=== PATIENT | female | born 1940 | race Caucasian/White ===

== ENCOUNTER → 2019-08-28 | Outpatient (CLI) | payer MEDICARE, OTHER ==
[2019-08-28 19:57] LABS: African American GFR (CKD) 100.5 (60.0-200.0); Albumin 4.4 g/dL (3.80-4.90); Albumin/Globulin Ratio 2.44 (1.60-3.17); Anion Gap 7.6 mmol/L (4.00-12.00); Calcium 9.3 mg/dL (8.7-10.3); Carbon Dioxide 26.4 mmol/L (21.6-31.8); Globulin 1.8 g/dL (1.6-3.3); Potassium 4.1 mmol/L (3.5-5.5); Total Bilirubin 0.3 mg/dL (0.3-1.2); Total Protein 6.2 g/dL (6.2-8.2)
== END | disposition home or self-care (01) ==
LOC: LABWHC1 12:41
PROVIDERS: ATTEND Internal Medicine Endocrinology, Diabetes & Metabolism
DX: M81.0 Age-related osteoporosis without current pathological fracture (principal)
CPT/HCPCS: 36415; 80053; 82306; 83970; 84443

== ENCOUNTER 2020-07-21 23:51 | Inpatient (IN) | payer MEDICARE, OTHER ==
[2020-07-22] MEDS: SODIUM CHLORIDE 0.9% 500 ML 500 ML IV SCH ×2 (00:50→01:21)
[2020-07-22 01:34] LABS: Basophils % (A) 0 %; Eosinophils % (A) 0 %; HCT 37.3 % (34.0-46.0); HGB 12.1 gm/dL (11.4-16.0); Lymphocytes # (A) 0.3 k/uL (1.0-4.8); Lymphocytes % (A) 3 %; MCH 30.4 pg (25.0-35.0); MCHC 32.5 g/dL (31.0-37.0); MCV 93.4 fL (80.0-100.0); Mean Platelet Volume 8.4; Monocytes # (A) 0.4 k/uL (0-1.0); Monocytes % (A) 4 %; Neutrophils # (A) 10.6 k/uL (1.3-7.7); Neutrophils % (A) 93 %; Platelet Count 188 k/uL (150-450); RDW 12.8 % (11.5-15.5); WBC 11.4 k/uL (3.8-10.6)
[2020-07-22 01:38] LABS: ALT 9 U/L (4-34); AST 35 U/L (14-36); African American GFR (CKD) >90 (>60 ml/min/1.73 sqM); Albumin 3.5 g/dL (3.5-5.0); Alkaline Phosphatase 137 U/L (38-126); Anion Gap 7 mmol/L; Blood Urea Nitrogen 30 mg/dL (7-17); Calcium 8.7 mg/dL (8.4-10.2); Carbon Dioxide 23 mmol/L (22-30); Chloride 106 mmol/L (98-107); Glucose 122 mg/dL (74-99); Magnesium 2.2 mg/dL (1.6-2.3); Non-African American GFR(CKD) 87 (>60 ml/min/1.73 sqM); Potassium 4.1 mmol/L (3.5-5.1); Sodium 136 mmol/L (137-145); Total Bilirubin 0.6 mg/dL (0.2-1.3); Total Protein 6.1 g/dL (6.3-8.2)
[2020-07-22 01:42] LABS: INR 1.1 (<1.2); Partial Thromboplastin Time 24.7 sec (22.0-30.0); Prothrombin Time 11.4 sec (9.0-12.0)
[2020-07-22] MEDS ORDERED: METOPROLOL TARTRATE 5 MG/5 ML VIAL IVP STA (02:49)
--- NOTE | 2020-07-22 02:49 | ED ---
Nausea/Vomiting/Diarrhea HPI - General Chief complaint: Nausea/Vomiting/Diarrhea Stated complaint: diarrhea Time Seen by Provider: 07/21/20 23:54 Source: patient, family, EMS Mode of arrival: EMS Limitations: no limitations - History of Present Illness Initial comments: Cydney is a pleasant 79yo female with PMH of afib RVR who presents to the ER today via EMS for evaluation of 24hrs of watery diarrhea, diffuse abdominal cramping, low grade fever and blood in her stool. Patient reports she has had diarrhea, she noticed blood in the stool this evening, her daughter states that when she attempted to help clean her mother she noted some "tissue" hanging from her rectum she is unsure if it was a hemorrhoid or her rectum coming out. - Related Data Home Medications Medication Instructions Recorded Confirmed ALPRAZolam [Xanax] 0.5 mg PO QAM 10/07/14 10/10/14 Aspirin 81 mg PO DAILY 10/07/14 10/10/14 Baclofen [Lioresal] 10 mg PO QID 10/07/14 10/10/14 Butalb/Acetaminophen/Caffeine 1 - 2 each PO TID PRN 10/07/14 10/10/14 [Fioricet] Furosemide [Lasix] 20 mg PO BID 10/07/14 10/10/14 Omeprazole [PriLOSEC] 20 mg PO AC-BRKFST 10/07/14 10/10/14 Primidone [Mysoline] 50 mg PO TID 10/07/14 10/10/14 Sertraline [Zoloft] 50 mg PO DAILY 10/07/14 10/10/14 atenoloL [Tenormin] 25 mg PO BID 10/07/14 10/10/14 oxyCODONE-APAP 10-325MG [Percocet 1 each PO Q6HR PRN 10/07/14 10/10/14 10-325] Allergies Allergy/AdvReac Type Severity Reaction Status Date / Time No Known Allergies Allergy Verified 07/22/20 00:18 Review of Systems ROS Statement: Those systems with pertinent positive or pertinent negative responses have been documented in the HPI. ROS Other: All systems not noted in ROS Statement are negative. Past Medical History Past Medical History: Atrial Fibrillation, Eye Disorder, GERD/Reflux, Hypertension, Mitral Valve Prolapse (MVP) Additional Past Medical History / Comment(s): HYPOGLYCEMIC History of Any Multi-Drug Resistant Organisms: None Reported Past Surgical History: Back Surgery, Cholecystectomy Additional Past Surgical History / Comment(s): RT CATARACT REMOVED. COLONOSCOPY. HEMORRHOIDECTOMY Past Anesthesia/Blood Transfusion Reactions: No Reported Reaction Past Psychological History: Anxiety, Depression Past Alcohol Use History: None Reported Past Drug Use History: None Reported General Exam - General Exam Comments Initial Comments: Physical Exam GENERAL: Patient is well-developed and well-nourished. Patient is nontoxic and well- hydrated and is in no distress. HENT: Normocephalic, Atraumatic. EYES: PERRL, EOMI PULMONARY: Unlabored respirations. No audible rales rhonchi or wheezing was noted. CARDIOVASCULAR: Irregularly irregular, ABDOMEN: Soft and nontender with normal bowel sounds. SKIN: Skin is dry and tenting : Normal external genitalia Rectal exam with external hemorrhoids, no rectal prolapse Stage 2 decubitus ulcer noted NEUROLOGIC: Patient is alert and oriented x3. Moving all extremities spontaneously MUSCULOSKELETAL: Normal extremities with adequate strength and full range of motion. No lower extremity swelling or edema. No calf tenderness. PSYCHIATRIC: Normal psychiatric evaluation. Limitations: no limitations Course Vital Signs 07/22/20 07/22/20 07/22/20 00:14 00:44 01:00 Temperature 99.8 F H Pulse Rate 115 H 140 H 124 H Respiratory 16 23 41 H Rate Blood Pressure 103/69 103/69 O2 Sat by Pulse 93 L Oximetry 07/22/20 07/22/20 07/22/20 01:30 01:41 02:00 Temperature Pulse Rate 118 H 101 H 110 H Respiratory 23 16 11 L Rate Blood Pressure 103/69 103/69 96/73 O2 Sat by Pulse Oximetry 07/22/20 07/22/20 07/22/20 02:30 03:00 03:43 Temperature Pulse Rate 142 H 126 H 128 H Respiratory 16 21 18 Rate Blood Pressure 100/75 116/85 136/92 O2 Sat by Pulse 95 Oximetry 07/22/20 04:00 Temperature Pulse Rate 122 H Respiratory 14 Rate Blood Pressure 123/76 O2 Sat by Pulse 94 L Oximetry Medical Decision Making - Medical Decision Making Patient was seen and evaluated history is obtained from patient and daughter bedside Chronically ill 79-year-old female with 24 hours of diarrhea, appears dehydrated is noted to be in A. fib with RVR this is likely secondary to dehydration as well as inability to absorb her medications for the past 24 hours due to profound diarrhea Labs and IV fluids were ordered Was relatively unremarkable, however given the fever and diarrhea computed tomography scan of the abdomen was ordered Patient's A. fib RVR was treated with a single dose of Lopressor however there is minimal improvement decision was made to start a Cardizem drip Computed tomography scan revealed colitis, Rocephin and Flagyl were ordered Patient to be admitted for colitis, dehydration, A. fib RVR - Lab Data Result diagrams: 07/22/20 00:13 07/22/20 00:13 Lab Results 07/22/20 07/22/20 07/22/20 Range/Units 00:13 00:13 00:13 WBC 11.4 H (3.8-10.6) k/uL RBC 4.00 (3.80-5.40) m/uL Hgb 12.1 (11.4-16.0) gm/dL Hct 37.3 (34.0-46.0) % MCV 93.4 (80.0-100.0) fL MCH 30.4 (25.0-35.0) pg MCHC 32.5 (31.0-37.0) g/dL RDW 12.8 (11.5-15.5) % Plt Count 188 (150-450) k/uL Neutrophils % 93 % Lymphocytes % 3 % Monocytes % 4 % Eosinophils % 0 % Basophils % 0 % Neutrophils # 10.6 H (1.3-7.7) k/uL Lymphocytes # 0.3 L (1.0-4.8) k/uL Monocytes # 0.4 (0-1.0) k/uL Eosinophils # 0.0 (0-0.7) k/uL Basophils # 0.0 (0-0.2) k/uL PT 11.4 (9.0-12.0) sec INR 1.1 (<1.2) APTT 24.7 (22.0-30.0) sec Sodium 136 L (137-145) mmol/L Potassium 4.1 (3.5-5.1) mmol/L Chloride 106 (98-107) mmol/L Carbon Dioxide 23 (22-30) mmol/L Anion Gap 7 mmol/L BUN 30 H (7-17) mg/dL Creatinine 0.59 (0.52-1.04) mg/dL Est GFR (CKD-EPI)AfAm >90 (>60 ml/min/1.73 sqM) Est GFR (CKD-EPI)NonAf 87 (>60 ml/min/1.73 sqM) Glucose 122 H (74-99) mg/dL Plasma Lactic Acid [place] (0.7-2.0) mmol/L Calcium 8.7 (8.4-10.2) mg/dL Magnesium 2.2 (1.6-2.3) mg/dL Total Bilirubin 0.6 (0.2-1.3) mg/dL AST 35 (14-36) U/L ALT 9 (4-34) U/L Alkaline Phosphatase 137 H (38-126) U/L Total Protein 6.1 L (6.3-8.2) g/dL Albumin 3.5 (3.5-5.0) g/dL Urine Color Urine Appearance (Clear) Urine pH (5.0-8.0) Ur Specific [place] (1.001-1.035) Urine Protein (Negative) Urine Glucose (UA) (Negative) Urine Ketones (Negative) Urine Blood (Negative) Urine Nitrite (Negative) Urine Bilirubin (Negative) Urine Urobilinogen (<2.0) mg/dL Ur Leukocyte Esterase (Negative) 07/22/20 07/22/20 Range/Units 00:13 02:45 WBC (3.8-10.6) k/uL RBC (3.80-5.40) m/uL Hgb (11.4-16.0) gm/dL Hct (34.0-46.0) % MCV (80.0-100.0) fL MCH (25.0-35.0) pg MCHC (31.0-37.0) g/dL RDW (11.5-15.5) % Plt Count (150-450) k/uL Neutrophils % % Lymphocytes % % Monocytes % % Eosinophils % % Basophils % % Neutrophils # (1.3-7.7) k/uL Lymphocytes # (1.0-4.8) k/uL Monocytes # (0-1.0) k/uL Eosinophils # (0-0.7) k/uL Basophils # (0-0.2) k/uL PT (9.0-12.0) sec INR (<1.2) APTT (22.0-30.0) sec Sodium (137-145) mmol/L Potassium (3.5-5.1) mmol/L Chloride (98-107) mmol/L Carbon Dioxide (22-30) mmol/L Anion Gap mmol/L BUN (7-17) mg/dL Creatinine (0.52-1.04) mg/dL Est GFR (CKD-EPI)AfAm (>60 ml/min/1.73 sqM) Est GFR (CKD-EPI)NonAf (>60 ml/min/1.73 sqM) Glucose (74-99) mg/dL Plasma Lactic Acid [place] 1.3 (0.7-2.0) mmol/L Calcium (8.4-10.2) mg/dL Magnesium (1.6-2.3) mg/dL Total Bilirubin (0.2-1.3) mg/dL AST (14-36) U/L ALT (4-34) U/L Alkaline Phosphatase (38-126) U/L Total Protein (6.3-8.2) g/dL Albumin (3.5-5.0) g/dL Urine Color Yellow Urine Appearance Clear (Clear) Urine pH 6.5 (5.0-8.0) Ur Specific [place] 1.031 (1.001-1.035) Urine Protein Trace H (Negative) Urine Glucose (UA) Negative (Negative) Urine Ketones Negative (Negative) Urine Blood Negative (Negative) Urine Nitrite Negative (Negative) Urine Bilirubin Negative (Negative) Urine Urobilinogen 3.0 (<2.0) mg/dL Ur Leukocyte Esterase Negative (Negative) - EKG Data -: EKG Interpreted by Me EKG Comments: KG was obtained due to tachycardia, EKG was obtained at 12:29 AM, rate is 119 rhythm is a narrow complex irregularly irregular tachycardia consistent with A. fib with RVR there is no acute ST elevations or depressions no evidence of acute ischemia or infarction. Disposition Clinical Impression: Atrial fibrillation with RVR, Dehydration, Diarrhea, Bleeding hemorrhoid, Colitis Disposition: ADMITTED IP TO THIS HOSP Condition: Serious Is patient prescribed a controlled substance at d/c from ED?: No
[2020-07-22 02:55] LABS: Appearance,Urine Clear (Clear); Bilirubin,Urine Negative (Negative); Blood,Urine Negative (Negative); Color,Urine Yellow; Glucose,Urine (UA) Negative (Negative); Ketones,Urine Negative (Negative); Leukocyte Esterase,Urine Negative (Negative); Nitrite,Urine Negative (Negative); PH, Urine 6.5 (5.0-8.0); Protein,Urine Trace (Negative); Specific Gravity,Urine 1.031 (1.001-1.035)
[2020-07-22] MEDS ORDERED: NALOXONE 0.4 MG/ML 1 ML VIAL IV PRN (03:17)
[2020-07-22] MEDS: SODIUM CHLORIDE 0.9% 1,000 ML IV SCH ×2 (03:30→21:12)
[2020-07-22] MEDS ORDERED: DILTIAZEM DRIP BOLUS FROM BAG 1 MG SOLN IV ONE (03:48)
[2020-07-22] MEDS ORDERED: DILTIAZEM 125 MG in SODIUM CHLORIDE 0.9% 100 ML IV SCH (04:00)
--- NOTE | 2020-07-22 04:00 | CT ---
EXAMINATION TYPE: CT abdomen pelvis w con DATE OF EXAM: 07/22/2020 COMPARISON: None HISTORY: Abd Pain CT DLP: 883.70 mGycm Automated exposure control for dose reduction was used. CONTRAST: Performed with IV Contrast, patient injected with 100 mL of Isovue 300. Heart is enlarged. There is some patchy atelectasis at the lung bases. There is metal artifact from m ultilevel posterior lower thoracic and lumbar spine fusion surgery. Liver shows no focal defect. There are clips apparently from cholecystectomy. Spleen is intact. There is no sign of pancreatic mass. There is no adrenal mass. Kidneys show satisfactory contrast opacification. There is no hydronephrosi s. Ureters are not dilated. There is no retroperitoneal adenopathy. Bladder distends smoothly. There is no inguinal hernia. There is small amount of free fluid in the abdomen. There appears to be wall t hickening of the sigmoid colon. Appendix is posterior and appears normal. I see no sign of a bowel obstruction. There are no dilated loops. There is no evidence of free air. The bony pelvis is intact. There are numerous thoracic and lumbar compression fractures. There are co mpression fractures up to 40%. This is seen at L2 L1 T10 and T9 vertebra. IMPRESSION: There is minimal free fluid in the abdomen. There appears to be wall thickening of the sigmoid colon suggestive of nonspecific colitis. No free air. Mildly dilated biliary tree but no obstructing lesion seen.
[2020-07-22] MEDS ORDERED: cefTRIAXone IN SWFI 1,000 MG/10 ML SYRINGE IVP STA (04:31)
[2020-07-22] MEDS ORDERED: metroNIDAZOLE-NS PMX 500 MG in SALINE 1 100ML.BAG IVPB STA (04:31)
--- NOTE | 2020-07-22 11:04 | P.HPIM ---
History of Present Illness The patient is a pleasant 79-year-old female came in now with the complaints of diarrhea watery with diffuse abdominal cramping restarted yesterday patient developed had fever last night. Patient's abdominal pain is cramping in sens ation. Patient was told patient may have rectal prolapse by family members unsure whether it's hemorrhoid coming out of the rectum. Patient also found to be in atrial fibrillation with rapid ventricular rate was started on Cardizem and do not have any previous echocardiogram available at this time. Patient denied any cough patient denied any URI symptoms. Patient was exposed to sick contacts and had a recent general also has diarrhea. Review of Systems REVIEW OF SYSTEMS: CONSTITUTIONAL: No fever, no malaise, no fatigue. HEENT: No recent visual problems or hearing problems. Denied any sore throat. CARDIOVASCULAR: No chest pain, orthopnea, PND, no palpitations, no syncope. PULMONARY: No shortness of breath, no cough, no hemoptysis. GASTROINTESTINAL: As mentioned in HPI NEUROLOGICAL: No headaches, no weakness, no numbness. HEMATOLOGICAL: Denies any bleeding or petechiae. GENITOURINARY: Denies any burning micturition, frequency, or urgency. MUSCULOSKELETAL/RHEUMATOLOGICAL: Denies any joint pain, swelling, or any muscle pain. ENDOCRINE: Denies any polyuria or polydipsia. The rest of the 14-point review of systems is negative. Past Medical History Past Medical History: Atrial Fibrillation, Eye Disorder, GERD/Reflux, Hypertension, Mitral Valve Prolapse (MVP) Additional Past Medical History / Comment(s): HYPOGLYCEMIC History of Any Multi-Drug Resistant Organisms: None Reported Past Surgical History: Back Surgery, Cholecystectomy Additional Past Surgical History / Comment(s): RT CATARACT REMOVED. COLONOSCOPY. HEMORRHOIDECTOMY Past Anesthesia/Blood Transfusion Reactions: No Reported Reaction Past Psychological History: Anxiety, Depression Smoking Status: Former smoker Past Alcohol Use History: None Reported Past Drug Use History: None Reported Medications and Allergies Home Medications Medication Instructions Recorded Confirmed Type Aspirin 81 mg PO HS 10/07/14 07/22/20 History Baclofen [Lioresal] 10 mg PO Q6H 10/07/14 07/22/20 History Butalb/Acetaminophen/Caffeine 1 - 2 tab PO TID PRN 10/07/14 07/22/20 History [Fioricet] Sertraline [Zoloft] 50 mg PO DAILY 10/07/14 07/22/20 History atenoloL [Tenormin] 25 mg PO BID@1200,2330 10/07/14 07/22/20 History Carbidopa-Levodopa 25-100 mg 1 tab PO 5XD 07/22/20 07/22/20 History [Sinemet 25-100] Flecainide [Tambocor] 50 mg PO BID@1200,2330 07/22/20 07/22/20 History Methyl Salicylate/Menthol 1 patch TOPICAL BID 07/22/20 07/22/20 History [Salonpas Patch] Allergies Allergy/AdvReac Type Severity Reaction Status Date / Time No Known Allergies Allergy Verified 07/22/20 08:38 Physical Exam Vitals: Vital Signs Temp Pulse Pulse Resp BP BP Pulse Ox 07/22/20 08:00 99.3 F 100 16 93/69 92 L 07/22/20 05:35 98 18 07/22/20 04:55 101.1 F H 98 18 111/66 93 L 07/22/20 04:31 98.7 F 107 H 14 99/69 96 07/22/20 04:00 122 H 14 123/76 94 L 07/22/20 03:43 128 H 18 136/92 95 07/22/20 03:00 126 H 21 116/85 07/22/20 02:30 142 H 16 100/75 07/22/20 02:00 110 H 11 L 96/73 07/22/20 01:41 101 H 16 103/69 07/22/20 01:30 118 H 23 103/69 07/22/20 01:00 124 H 41 H 07/22/20 00:44 140 H 23 103/69 07/22/20 00:14 99.8 F H 115 H 16 103/69 93 L Intake and Output 07/21/20 07/22/20 07/22/20 22:59 06:59 14:59 Other: Voiding Method Bedside Commode Diaper # Voids 1 Weight 57.1 kg PHYSICAL EXAMINATION: GENERAL: The patient is alert and oriented x3, not in any acute distress. Thin built female HEENT: Pupils are round and equally reacting to light. EOMI. No scleral icterus. No conjunctival pallor. Normocephalic, atraumatic. No pharyngeal erythema. No thyromegaly. CARDIOVASCULAR: S1 and S2 present. No murmurs, rubs, or gallops. PULMONARY: Chest is clear to auscultation, no wheezing or crackles. ABDOMEN: Soft, nontender, nondistended, normoactive bowel sounds. No palpable organomegaly. Rectal exam was not done MUSCULOSKELETAL: No joint swelling or deformity. EXTREMITIES: No cyanosis, clubbing, or pedal edema. NEUROLOGICAL: Gross neurological examination did not reveal any focal deficits. SKIN: No rashes. Results CBC & Chem 7: 07/22/20 00:13 07/22/20 00:13 Labs: Abnormal Lab Results - Last 24 Hours (Table) 07/22/20 07/22/20 07/22/20 Range/Units 00: 00:13 02:45 WBC 11.4 H (3.8-10.6) k/uL Neutrophils # 10.6 H (1.3-7.7) k/uL Lymphocytes # 0.3 L (1.0-4.8) k/uL Sodium 136 L (137-145) mmol/L BUN 30 H (7-17) mg/dL Glucose 122 H (74-99) mg/dL Alkaline Phosphatase 137 H (38-126) U/L Total Protein 6.1 L (6.3-8.2) g/dL Urine Protein Trace H (Negative) Thrombosis Risk Factor Assmnt - Choose All That Apply Each Risk Factor Represents 3 Points: Age 75 years or older Thrombosis Risk Factor Assessment Total Risk Factor Score: 3 Thrombosis Risk Factor Assessment Level: Moderate Risk Assessment and Plan Plan: -Sepsis: Possibility of colitis only mild colitis and the CT. C. diff for colitis and it to be ruled out as well. Continue with Rocephin and metronidazole for now. We'll also rule out covid 19 considering recent visit to and no clear-cut source of infection although infectious colitis can be the source. I'll also obtain a chest x-ray. Urinalysis did not show any significant abnormality -Atrial fibrillation: New-onset patient was started on Cardizem, presently not on any anti-coagulation cardiology was consulted. -Gastroesophageal reflux disease -Hypertension -History of mitral valve prolapse -If patient is not started on any anticoagulation with cardiology I'll start her on dvt prophylaxis
--- NOTE | 2020-07-22 11:52 | P.CRDCN ---
History of Present Illness Consult date: 07/22/20 Consult reason: atrial fibrillation Chief complaint: Nausea, vomiting, diarrhea History of present illness: This is an 79-year-old female with documented history of Parkinson's disease, hypertension, mitral valve prolapse, paroxysmal atrial fibrillation, she follows with Dr. Chand in the office. Patient had been on anticoagulantion in the past on Eliquis, she had an ALLERGIC reaction to this, which is why she's not currently on anticoagulation. History was obtained from the medical record as the patient appears to be confused, apparently the daughter gave most of the history. Patient presented to the hospital with symptoms of nausea, vomiting, and diarrhea for 24 hour duration. She was also experiencing some abdominal cramping and low-grade fever. Her EKG on presentation here showed atrial fibrillation with moderately rapid ventricular response. CT of the abdomen and pelvis showed minimal free fluid in the abdomen. Her temperature has been up to 101.1 here, this morning 99.3. White blood cell count 11.4, hemoglobin 12.1, platelet count 188. Sodium 136, potassium 4.1, BUN 30, creatinine 0.5. Blood pressure 93/60 with a heart rate in the 192% on room air. She was given a Cardizem bolus as well as one dose of IV Lopressor on admission here. Her home medications include Tenormin 25 mg twice a day, flat and I 50 twice a day, Sinemet, failure status, aspirin, and Zoloft. Past Medical History Past Medical History: Atrial Fibrillation, Eye Disorder, GERD/Reflux, Hypertension, Mitral Valve Prolapse (MVP) Additional Past Medical History / Comment(s): HYPOGLYCEMIC History of Any Multi-Drug Resistant Organisms: None Reported Past Surgical History: Back Surgery, Cholecystectomy Additional Past Surgical History / Comment(s): RT CATARACT REMOVED. COLONOSCOPY. HEMORRHOIDECTOMY Past Anesthesia/Blood Transfusion Reactions: No Reported Reaction Past Psychological History: Anxiety, Depression Smoking Status: Former smoker Past Alcohol Use History: None Reported Past Drug Use History: None Reported Medications and Allergies Home Medications Medication Instructions Recorded Confirmed Type Aspirin 81 mg PO HS 10/07/14 07/22/20 History Baclofen [Lioresal] 10 mg PO Q6H 10/07/14 07/22/20 History Butalb/Acetaminophen/Caffeine 1 - 2 tab PO TID PRN 10/07/14 07/22/20 History [Fioricet] Sertraline [Zoloft] 50 mg PO DAILY 10/07/14 07/22/20 History atenoloL [Tenormin] 25 mg PO BID@1200,2330 10/07/14 07/22/20 History Carbidopa-Levodopa 25-100 mg 1 tab PO 5XD 07/22/20 07/22/20 History [Sinemet 25-100] Flecainide [Tambocor] 50 mg PO BID@1200,2330 07/22/20 07/22/20 History Methyl Salicylate/Menthol 1 patch TOPICAL BID 07/22/20 07/22/20 History [Salonpas Patch] Allergies Allergy/AdvReac Type Severity Reaction Status Date / Time No Known Allergies Allergy Verified 07/22/20 08:38 Physical Exam Vitals: Vital Signs Temp Pulse Pulse Resp BP BP Pulse Ox 07/22/20 08:00 99.3 F 100 16 93/69 92 L 07/22/20 05:35 98 18 07/22/20 04:55 101.1 F H 98 18 111/66 93 L 07/22/20 04:31 98.7 F 107 H 14 99/69 96 07/22/20 04:00 122 H 14 123/76 94 L 07/22/20 03:43 128 H 18 136/92 95 07/22/20 03:00 126 H 21 116/85 07/22/20 02:30 142 H 16 100/75 07/22/20 02:00 110 H 11 L 96/73 07/22/20 01:41 101 H 16 103/69 07/22/20 01:30 118 H 23 103/69 07/22/20 01:00 124 H 41 H 07/22/20 00:44 140 H 23 103/69 07/22/20 00:14 99.8 F H 115 H 16 103/69 93 L Intake and Output 07/21/20 07/22/20 07/22/20 22:59 06:59 14:59 Other: Voiding Method Bedside Commode Diaper # Voids 1 Weight 57.1 kg PHYSICAL EXAMINATION: GENERAL: 79-year-old female in no acute distress at the time of my examination HEENT: Head is atraumatic, normocephalic. Pupils equal, round. Sclera anicte lenard. Conjunctiva are clear. Mucous membranes of the mouth are moist. Neck is supple. There is no elevated jugular venous pressure. No carotid bruit is heard. HEART EXAMINATION: Heart S1 and S2 irregularly irregular a systolic murmur is heard CHEST EXAMINATION: Lungs are clear to auscultation and precussion. No chest wall tenderness is noted on palpation or with deep breathing. ABDOMEN: Soft, nontender. Bowel sounds are heard. No organomegaly noted. EXTREMITIES: 2+ peripheral pulses with no evidence of peripheral edema and no calf tenderness noted. NEUROLOGIC patient is awake, alert and oriented 1. . Results 07/22/20 00:13 07/22/20 00:13 Cardiac Enzymes 07/22/20 Range/Units 00:13 AST 35 (14-36) U/L Coagulation 07/22/20 Range/Units 00:13 PT 11.4 (9.0-12.0) sec APTT 24.7 (22.0-30.0) sec CBC 07/22/20 Range/Units 00:13 WBC 11.4 H (3.8-10.6) k/uL RBC 4.00 (3.80-5.40) m/uL Hgb 12.1 (11.4-16.0) gm/dL Hct 37.3 (34.0-46.0) % Plt Count 188 (150-450) k/uL Comprehensive Metabolic Panel 07/22/20 Range/Units 00:13 Sodium 136 L (137-145) mmol/L Potassium 4.1 (3.5-5.1) mmol/L Chloride 106 (98-107) mmol/L Carbon Dioxide 23 (22-30) mmol/L BUN 30 H (7-17) mg/dL Creatinine 0.59 (0.52-1.04) mg/dL Glucose 122 H (74-99) mg/dL Calcium 8.7 (8.4-10.2) mg/dL AST 35 (14-36) U/L ALT 9 (4-34) U/L Alkaline Phosphatase 137 H (38-126) U/L Total Protein 6.1 L (6.3-8.2) g/dL Albumin 3.5 (3.5-5.0) g/dL Current Medications Generic Name Dose Route Start Last Admin Trade Name Freq PRN Reason Stop Dose Admin Acetaminophen/Butalbital/Caffeine 1 each 07/22/20 10:38 Butalb/Apap/Caff 50-325-40mg Tab PO TID PRN Migraine Headache Aspirin 81 mg 07/22/20 21:00 Aspirin 81 Mg PO HS KRISTA Baclofen 10 mg 07/22/20 16:00 Baclofen 10 Mg Tab PO TID KRISTA Carbidopa/Levodopa 1 each 07/22/20 11:00 Carbidopa-Levodopa 25-100 Mg 1 Each Tab PO 5XD KRISTA Flecainide Acetate 50 mg 07/22/20 12:00 Flecainide 50 Mg Tab PO BID@1200,2330 KRISTA Sodium Chloride 1,000 mls @ 75 mls/hr 07/22/20 03:30 07/22/20 03:30 Saline 0.9% IV 75 mls/hr .[id number] KRISTA Administration Diltiazem HCl 125 mg/ Sodium 125 mls @ 0 mls/hr 07/22/20 04:00 07/22/20 04:01 Chloride IV 5 mg/hr .Q0M KRISTA 5 mls/hr Administration Protocol Per Protocol Ceftriaxone Sodium 1 gm/ 50 mls @ 100 mls/hr 07/23/20 09:00 Sodium Chloride IVPB Q24HR KRISTA Metronidazole 500 mg/ IV 100 mls @ 100 mls/hr 07/22/20 14:00 Solution IVPB Q8H KRISTA Naloxone HCl 0.2 mg 07/22/20 03:17 Naloxone 0.4 Mg/Ml 1 Ml Vial IV Q2M PRN Opioid Reversal Sertraline HCl 50 mg 07/23/20 09:00 Sertraline 50 Mg Tab PO DAILY KRISTA Intake and Output 07/21/20 07/22/20 07/22/20 22:59 06:59 14:59 Other: Voiding Method Bedside Commode Diaper # Voids 1 Weight 57.1 kg 07/22/20 00:13 07/22/20 00:13 EKG Interpretations (text) EKG shows atrial fibrillation with moderately rapid ventricular response Assessment and Plan Plan: Assessment and plan #1 symptoms of nausea vomiting and diarrhea, sepsis, possible colitis. Rule out Covid 19 #2 paroxysmal atrial fibrillation, on beta alexsandra and flecainide as an outpatient. She is not currently on anticoagulation because of an ALLERGIC reaction to Eliquis in the past #3 hypertension #4 mitral valve prolapse #5 GERD Plan We will obtain an echocardiogram with Doppler study as well as a TSH level. Resume beta alexsandra, increasing the dose to 3 times a day. DNP note has been reviewed, I agree with a documented findings and plan of care. Patient was seen and examined.
[2020-07-22] MEDS: metroNIDAZOLE-NS PMX 500 MG in SALINE 1 100ML.BAG IVPB SCH ×2 (13:18→21:00)
[2020-07-22] MEDS: FLECAINIDE 50 MG TAB PO SCH ×2 (13:25→23:07)
[2020-07-22] MEDS: CARBIDOPA-LEVODOPA 25-100 MG 1 EACH TAB PO SCH ×4 (13:25→23:07)
[2020-07-22] MEDS: METOPROLOL TARTRATE 25 MG TAB PO SCH ×3 (13:25→21:00)
--- NOTE | 2020-07-22 14:50 | ECHOF ---
Referral Reason:afib MEASUREMENTS -------- HEIGHT: 152.4 cm WEIGHT: 56.7 kg BP: IVSd: 1.2 cm (0.6 - 1.1) LVIDd: 3.9 cm (3.9 - 5.3) LVPWd: 1.2 cm (0.6 - 1.1) IVSs: 1.5 cm LVIDs: 3.0 cm LVPWs: 1.5 cm LA Diam: 4.1 cm (2.7 - 3.8) RVIDd: 2.9 cm (< 3.3) LAESV Index (A-L): 52.19 ml/m Ao Diam: 3.0 cm (2.0 - 3.7) AV Cusp: 2.1 cm (1.5 - 2.6) EPSS: 0.1 cm RAP: 15.00 mmHg RVSP: 46.35 mmHg MV EF SLOPE: 215.54 mm/s (70 - 150) MV EXCURSION: 17.77 mm (> 18.000) FINDINGS -------- Atrial fibrillation. This was a technically excellent study. The left ventricular size is normal. There is borderline concentric left ventricular hypertrophy. Overall left ventricular systolic function is mildly impaired with, an EF between 45 - 50 %. The right ventricle is normal in size. LA is severely dilated >40 ml/m2 The right atrium is normal in size. Interatrial and interventricular septum intact. There is mild aortic valve sclerosis. [id number] mitral regurgitation is present. Mild tricuspid regurgitation present. There is moderate pulmonary hypertension. The right ventric ular systolic pressure, as measured by Doppler, is 46.35mmHg. Trace/mild (physiologic) pulmonic regurgitation. The aortic root size is normal. The inferior vena cava is dilated with poor inspiratory collapse which is consistent with estimated r ight atrial pressure of 15 mmHg. There is no pericardial effusion. CONCLUSIONS -------- 1. The left ventricular size is normal. 2. There is borderline concentric left ventricular hypertrophy. 3. LA is severely dilated >40 ml/m2 4. [id number] mitral regurgitation is present. 5. Mild tricuspid regurgitation present. 6. There is moderate pulmonary hypertension. 7. The right ventricular systolic pressure, as measured by Doppler, is 46.35mmHg. 8. Trace/mild (physiologic) pulmonic regurgitation. 9. The inferior vena cava is dilated with poor inspiratory collapse which is consistent with estimate d right atrial pressure of 15 mmHg. 10. There is no pericardial effusion. YACHT HAND: Jil Colorado RDCS
--- NOTE | 2020-07-22 15:25 | P.GSCN ---
History of Present Illness Consult date: 07/22/20 History of present illness: CHIEF COMPLAINT: Rectal prolapse HISTORY OF PRESENT ILLNESS: This is a 79-year-old female with a known history of paroxysmal atrial fibrillation, hypertension, GERD, mitral valve prolapse and cholecystectomy. Patient presented to the emergency room with complaints of diarrhea and abdominal cramping. Patient did notice some blood in her stools. Per patient she does feel that there is tissue hanging from her rectum. She noticed symptoms started about 24-48 hours ago. Patient did have a fever of 101.1 early this morning. She is also being followed by cardiology for atrial fibrillation with rapid ventricular response. PAST MEDICAL HISTORY: See list. PAST SURGICAL HISTORY: See list. MEDICATIONS: See list. ALLERGIES: See list. SOCIAL HISTORY: No illicit drug use. REVIEW OF SYSTEMS: CONSTITUTIONAL: Denies fever or chills. HEENT: Denies blurred vision, vision changes, or eye pain. Denies hemoptysis CARDIOVASCULAR: Denies chest pain or pressure. RESPIRATORY: No shortness of breath. GASTROINTESTINAL: See HPI for pertinent findings HEMATOLOGIC: Denies bleeding disorders. GENITOURINARY: Denies any blood in urine or increased urinary frequency. SKIN: Denies pruitis. Denies rash. PHYSICAL EXAM: VITAL SIGNS: Reviewed GENERAL: Well-developed in no acute distress. HEENT: No sclera icterus. Extraocular movements grossly intact. Moist buccal mucosa. Head is atraumatic, normocephalic. No nasal drainage. ABDOMEN: Soft. Nondistended. Nontender NEUROLOGIC: Alert and oriented. Cranial nerves II through XII grossly intact. LABORATORY DATA: WBC is 11.4 hemoglobin 12.1 and platelets 188 INR 1.1 creatinine 0.59 BUN 30 IMAGING: CT abdomen and pelvis there is minimal free fluid in the abdomen. There appears to be wall thickening of the sigmoid colon suggestive of nonspecific colitis. No free air. Mildly dilated biliary tree but no obstructing lesions seen ASSESSMENT: 1. Possible rectal prolapse 2. Nausea, vomiting and diarrhea with possible colitis 3. Paroxysmal atrial fibrillation with episode of rapid ventricular response followed by cardiology PLAN: -No surgical intervention planned during admission -Plan for outpatient colonoscopy once patient is stable -Antibiotics per medicine Thank you for this consultation. Physician Lard Mixer note has been reviewed by physician. Signing provider agrees with the documented findings, assessment, and plan of care. Past Medical History Past Medical History: Atrial Fibrillation, Eye Disorder, GERD/Reflux, Hypertension, Mitral Valve Prolapse (MVP) Additional Past Medical History / Comment(s): HYPOGLYCEMIC History of Any Multi-Drug Resistant Organisms: None Reported Past Surgical History: Back Surgery, Cholecystectomy Additional Past Surgical History / Comment(s): RT CATARACT REMOVED. COLONOSCOP Y. HEMORRHOIDECTOMY Past Anesthesia/Blood Transfusion Reactions: No Reported Reaction Past Psychological History: Anxiety, Depression Smoking Status: Former smoker Past Alcohol Use History: None Reported Past Drug Use History: None Reported Medications and Allergies Home Medications Medication Instructions Recorded Confirmed Type Aspirin 81 mg PO HS 10/07/14 07/22/20 History Baclofen [Lioresal] 10 mg PO Q6H 10/07/14 07/22/20 History Butalb/Acetaminophen/Caffeine 1 - 2 tab PO TID PRN 10/07/14 07/22/20 History [Fioricet] Sertraline [Zoloft] 50 mg PO DAILY 10/07/14 07/22/20 History atenoloL [Tenormin] 25 mg PO BID@1200,2330 10/07/14 07/22/20 History Carbidopa-Levodopa 25-100 mg 1 tab PO 5XD 07/22/20 07/22/20 History [Sinemet 25-100] Flecainide [Tambocor] 50 mg PO BID@1200,2330 07/22/20 07/22/20 History Methyl Salicylate/Menthol 1 patch TOPICAL BID 07/22/20 07/22/20 History [Salonpas Patch] Allergies Allergy/AdvReac Type Severity Reaction Status Date / Time No Known Allergies Allergy Verified 07/22/20 08:38 Surgical - Exam Vital Signs Temp Pulse Resp BP Pulse Ox 99.8 F H 115 H 16 103/69 93 L 07/22/20 00:14 07/22/20 00:14 07/22/20 00:14 07/22/20 00:14 07/22/20 00:14 Results - Labs 07/22/20 00:13 07/22/20 00:13 Abnormal Lab Results - Last 24 Hours (Table) 07/22/20 07/22/20 07/22/20 Range/Units 00:13 00:13 02:45 WBC 11.4 H (3.8-10.6) k/uL Neutrophils # 10.6 H (1.3-7.7) k/uL Lymphocytes # 0.3 L (1.0-4.8) k/uL Sodium 136 L (137-145) mmol/L BUN 30 H (7-17) mg/dL Glucose 122 H (74-99) mg/dL Alkaline Phosphatase 137 H (38-126) U/L Total Protein 6.1 L (6.3-8.2) g/dL Urine Protein Trace H (Negative) Diabetes panel 07/22/20 Range/Units 00:13 Sodium 136 L (137-145) mmol/L Potassium 4.1 (3.5-5.1) mmol/L Chloride 106 (98-107) mmol/L Carbon Dioxide 23 (22-30) mmol/L BUN 30 H (7-17) mg/dL Creatinine 0.59 (0.52-1.04) mg/dL Glucose 122 H (74-99) mg/dL Calcium 8.7 (8.4-10.2) mg/dL AST 35 (14-36) U/L ALT 9 (4-34) U/L Alkaline Phosphatase 137 H (38-126) U/L Total Protein 6.1 L (6.3-8.2) g/dL Albumin 3.5 (3.5-5.0) g/dL Thyroid panel 07/22/20 Range/Units 00:13 TSH 1.150 (0.465-4.680) mIU/L Calcium panel 07/22/20 Range/Units 00:13 Calcium 8.7 (8.4-10.2) mg/dL Albumin 3.5 (3.5-5.0) g/dL Pituitary panel 07/22/20 07/22/20 Range/Units 00:13 00:13 Sodium 136 L (137-145) mmol/L Potassium 4.1 (3.5-5.1) mmol/L Chloride 106 (98-107) mmol/L Carbon Dioxide 23 (22-30) mmol/L BUN 30 H (7-17) mg/dL Creatinine 0.59 (0.52-1.04) mg/dL Glucose 122 H (74-99) mg/dL Calcium 8.7 (8.4-10.2) mg/dL TSH 1.150 (0.465-4.680) mIU/L Adrenal panel 09/22/20 Range/Units 00:13 Sodium 136 L (137-145) mmol/L Potassium 4.1 (3.5-5.1) mmol/L Chloride 106 (98-107) mmol/L Carbon Dioxide 23 (22-30) mmol/L BUN 30 H (7-17) mg/dL Creatinine 0.59 (0.52-1.04) mg/dL Glucose 122 H (74-99) mg/dL Calcium 8.7 (8.4-10.2) mg/dL Total Bilirubin 0.6 (0.2-1.3) mg/dL AST 35 (14-36) U/L ALT 9 (4-34) U/L Alkaline Phosphatase 137 H (38-126) U/L Total Protein 6.1 L (6.3-8.2) g/dL Albumin 3.5 (3.5-5.0) g/dL
--- NOTE | 2020-07-22 16:06 | XR ---
EXAMINATION TYPE: XR chest 2V DATE OF EXAM: 07/22/2020 COMPARISON: None INDICATION: Pneumonia difficulty breathing TECHNIQUE: Frontal and lateral views of the chest are obtained. FINDINGS: The heart size is normal. The pulmonary vasculature is normal. Some mild streak atelectasis may be at the left base. Some mild blunting left costophrenic angle is p resent suggesting small effusion. Large portion of the left lung and portion of the medial right uppe r lobe cannot be well evaluated due to the kyphosis and head over this portion of the study.. IMPRESSION: 1. Limited exam. 2. Mild streak atelectasis left lower lobe
[2020-07-22] MEDS ORDERED: ENOXAPARIN 40 MG/0.4 ML SYRINGE SQ SCH (17:00)
[2020-07-22] MEDS: BACLOFEN 10 MG TAB PO SCH ×2 (17:12→21:00)
[2020-07-22] MEDS: BUTALB/APAP/CAFF 50-325-40MG TAB PO PRN (19:05)
[2020-07-22] MEDS ORDERED: ASPIRIN 81 MG PO SCH (21:00)
[2020-07-23] MEDS: BUTALB/APAP/CAFF 50-325-40MG TAB PO PRN ×4 (04:03→20:07)
[2020-07-23] MEDS: CARBIDOPA-LEVODOPA 25-100 MG 1 EACH TAB PO SCH ×5 (05:18→23:10)
[2020-07-23] MEDS: metroNIDAZOLE-NS PMX 500 MG in SALINE 1 100ML.BAG IVPB SCH ×3 (05:18→21:17)
[2020-07-23] MEDS: METOPROLOL TARTRATE 25 MG TAB PO SCH ×2 (05:19→15:59)
[2020-07-23] MEDS: SODIUM CHLORIDE 0.9% 1,000 ML IV SCH ×2 (06:07→20:07)
[2020-07-23 07:55] LABS: HCT 34.4 % (34.0-46.0); HGB 10.9 gm/dL (11.4-16.0); MCH 30.4 pg (25.0-35.0); MCHC 31.6 g/dL (31.0-37.0); MCV 96.1 fL (80.0-100.0); Platelet Count 128 k/uL (150-450); RBC 3.58 m/uL (3.80-5.40); RDW 13.1 % (11.5-15.5); WBC 7.1 k/uL (3.8-10.6)
[2020-07-23 08:09] LABS: African American GFR (CKD) >90 (>60 ml/min/1.73 sqM); Anion Gap 5 mmol/L; Blood Urea Nitrogen 17 mg/dL (7-17); Calcium 7.7 mg/dL (8.4-10.2); Carbon Dioxide 22 mmol/L (22-30); Chloride 110 mmol/L (98-107); Glucose 103 mg/dL (74-99); Non-African American GFR(CKD) >90 (>60 ml/min/1.73 sqM); Sodium 137 mmol/L (137-145)
[2020-07-23 08:12] LABS: Potassium 3.6 mmol/L (3.5-5.1)
[2020-07-23] MEDS: BACLOFEN 10 MG TAB PO SCH ×3 (08:41→21:16)
[2020-07-23] MEDS: SERTRALINE 50 MG TAB PO SCH (08:42)
[2020-07-23] MEDS: FLECAINIDE 50 MG TAB PO SCH ×2 (08:42→23:10)
--- NOTE | 2020-07-23 11:26 | P.PN ---
Subjective Progress Note Date: 07/23/20 This is an 79-year-old female with documented history of Parkinson's disease, hypertension, mitral valve prolapse, paroxysmal atrial fibrillation, she follows with Dr. Chand in the office. Patient had been on anticoagulantion in the past on Eliquis, she had an ALLERGIC reaction to this, which is why she's not currently on anticoagulation. History was obtained from the medical record as the patient appears to be confused, apparently the daughter gave most of the history. Patient presented to the hospital with symptoms of nausea, vomiting, and diarrhea for 24 hour duration. She was also experiencing some abdominal cramping and low-grade fever. Her EKG on presentation here showed atrial fibrillation with moderately rapid ventricular response. CT of the abdomen and pelvis showed minimal free fluid in the abdomen. Her temperature has been up to 101.1 here, this morning 99.3. White blood cell count 11.4, hemoglobin 12.1, platelet count 188. Sodium 136, potassium 4.1, BUN 30, creatinine 0.5. Blood pressure 93/60 with a heart rate in the 192% on room air. She was given a Cardizem bolus as well as one dose of IV Lopressor on admission here. Her home medications include Tenormin 25 mg twice a day, flat and I 50 twice a day, Sinemet, failure status, aspirin, and Zoloft. Patient seen and examined this morning, much more alert and oriented today. She states she is no longer having loose stools. Blood pressure 137/80 with a heart rate in the 90s to low 120s. White blood cell count 7.1, hemoglobin 10.9, platelet count 128. Sodium 137, potassium 3.6, BUN 17, creatinine 0.5. TSH is normal. An echocardiogram with Doppler study was performed which revealed an ejection fraction of 45-50%. She continues to be in atrial fibrillation which is chronic. I spoke with the patient at length this morning regarding anticoagulation. She did have an ALLERGIC reaction to Eliquis but stress test trying xarelto. Explaining her risk for stroke overall being high. She will speak with her daughter in detail about this, and I will follow-up with her later on today. Objective - Vital Signs Vital signs: Vital Signs Temp 98.5 F 07/23/20 08:00 Pulse 124 H 07/23/20 08:00 Resp 16 07/23/20 08:00 BP 149/101 07/23/20 08:00 Pulse Ox 93 L 07/23/20 08:00 Intake & Output 07/22/20 07/23/20 07/23/20 18:59 06:59 18:59 Intake Total 240 520 Output Total 200 200 Balance 40 -200 520 Weight 57.6 kg Intake: Oral 240 520 Output: Urine 200 200 Other: Voiding Method Bedside Commode Bedside Commode Bedside Commode Diaper # Voids 1 1 # Bowel Movements 1 1 - Exam PHYSICAL EXAMINATION: GENERAL: 79-year-old female in no acute distress at the time of my examination HEENT: Head is atraumatic, normocephalic. Pupils equal, round. Sclera anicteric. Conjunctiva are clear. Mucous membranes of the mouth are moist. Neck is supple. There is no elevated jugular venous pressure. No carotid bruit is heard. HEART EXAMINATION: Heart S1 and S2 irregularly irregular a systolic murmur is he rosangela CHEST EXAMINATION: Lungs are clear to auscultation and precussion. No chest wall tenderness is noted on palpation or with deep breathing. ABDOMEN: Soft, nontender. Bowel sounds are heard. No organomegaly noted. EXTREMITIES: 2+ peripheral pulses with no evidence of peripheral edema and no ca lf tenderness noted. NEUROLOGIC patient is awake, alert and oriented 1. - Labs CBC & Chem 7: 07/23/20 07:32 07/23/20 07:32 Labs: Abnormal Lab Results - Last 24 Hours (Table) 07/23/20 07/23/20 Range/Units 07:32 07:32 RBC 3.58 L (3.80-5.40) m/uL Hgb 10.9 L (11.4-16.0) gm/dL Plt Count 128 L (150-450) k/uL Chloride 110 H (98-107) mmol/L Glucose 103 H (74-99) mg/dL Calcium 7.7 L (8.4-10.2) mg/dL Microbiology - Last 24 Hours (Table) 07/22/20 01:27 Blood Culture - Preliminary Blood No Growth after 24 hours Assessment and Plan Plan: Assessment and plan #1 symptoms of nausea vomiting and diarrhea, sepsis, possible colitis. Rule out Covid 19 #2 paroxysmal atrial fibrillation, on beta alexsandra and flecainide as an outpatient. She is not currently on anticoagulation because of an ALLERGIC reaction to Eliquis in the past #3 hypertension #4 mitral valve prolapse #5 GERD Plan We will increase the metoprolol to 50 mg by mouth twice a day. He also had a lengthy discussion with the patient regarding initiating xarelto 15 mg daily. She did have an ALLERGIC reaction to Eliquis in the past but needs to be on anticoagulation for stroke prevention. She is going to speak with her daughter about this and we will touch base again later today. Further recommendations patient will then follow. DNP note has been reviewed, I agree with a documented findings and plan of care. Patient was seen and examined.
--- NOTE | 2020-07-23 12:56 | P.PN ---
Subjective From records: The patient is a pleasant 79-year-old female came in now with the complaints of diarrhea watery with diffuse abdominal cramping restarted yesterday patient developed had fever last night. Patient's abdominal pain is cramping in sensa tion. Patient was told patient may have rectal prolapse by family members unsure whether it's hemorrhoid coming out of the rectum. Patient also found to be in atrial fibrillation with rapid ventricular rate was started on Cardizem and do not have any previous echocardiogram available at this time. Patient denied any cough patient denied any URI symptoms. Patient was exposed to sick contacts and had a recent general also has diarrhea. Subjective: 07/23/2020, this is a first time taking care of the patient Patient is lying Comfortable, she denies chest pain or dyspnea, no abdominal pain, she was able to eat little bit only she had nausea but no vomiting. Currently she has no diarrhea and shows a regular bowel movement Patient she is to follow up with her mold changer Dr. Clancy, patient was not on Eliquis which give her facial swelling, she is not on any blood thinner. Patient also found to have acute sigmoid diverticulitis and she is going for colonoscopy tomorrow and after that patient most likely will be started on xarelto Review of systems CONSTITUTIONAL: No fever, no malaise, no fatigue. HEENT: No recent visual problems or hearing problems. Denied any sore throat. CARDIOVASCULAR: No orthopnea, PND, no palpitations, no syncope. PULMONARY: No shortness of breath, no cough, no hemoptysis. GASTROINTESTINAL: No diarrhea, no nausea, no vomiting, no abdominal pain. N ormoactive bowel sounds. NEUROLOGICAL: No headaches, no weakness, no numbness. Active Medications Generic Name Dose Route Start Last Admin Trade Name Freq PRN Reason Stop Dose Admin Acetaminophen/Butalbital/Caffeine 1 each 07/22/20 10:38 07/23/20 09:21 Butalb/Apap/Caff 50-325-40mg Tab PO 1 each TID PRN Administration Migraine Headache Baclofen 10 mg 07/22/20 16:00 07/23/20 08:41 Baclofen 10 Mg Tab PO 10 mg TID KRISTA Administration Carbidopa/Levodopa 1 each 07/22/20 11:00 07/23/20 08:42 Carbidopa-Levodopa 25-100 Mg 1 Each Tab PO 1 each 5XD KRISTA Administration Flecainide Acetate 50 mg 07/22/20 12:00 07/23/20 08:42 Flecainide 50 Mg Tab PO 50 mg BID@1200,2330 KRISTA Administration Sodium Chloride 1,000 mls @ 75 mls/hr 07/22/20 03:30 07/23/20 06:07 Saline 0.9% IV Not Given .[id number] KRISTA Diltiazem HCl 125 mg/ Sodium 125 mls @ 0 mls/hr 07/22/20 04:00 07/22/20 04:01 Chloride IV 5 mg/hr .Q0M KRISTA 5 mls/hr Administration Protocol Per Protocol Ceftriaxone Sodium 1 gm/ 50 mls @ 100 mls/hr 07/23/20 09:00 07/23/20 08:42 Sodium Chloride IVPB 100 mls/hr Q24HR KRISTA Administration Metronidazole 500 mg/ IV 100 mls @ 100 mls/hr 07/22/20 14:00 07/23/20 05:18 Solution IVPB 100 mls/hr Q8H KRISTA Administration Metoprolol Tartrate 25 mg 07/22/20 12:00 07/23/20 05:19 Metoprolol Tartrate 25 Mg Tab PO 25 mg TID KRISTA Administration Naloxone HCl 0.2 mg 07/22/20 03:17 Naloxone 0.4 Mg/Ml 1 Ml Vial IV Q2M PRN Opioid Reversal Polyethylene Glycol/Electrolytes 4,000 ml 07/23/20 13:00 Peg 3350-Na Sulf,Bicarb,Cl/Kcl 4,000 Ml Bottle PO 07/23/20 13:01 ONCE ONE Sertraline HCl 50 mg 07/23/20 09:00 07/23/20 08:42 Sertraline 50 Mg Tab PO 50 mg DAILY KRISTA Administration Objective - Vital Signs Vital signs: Vital Signs Temp 98.5 F 07/23/20 08:00 Pulse 124 H 07/23/20 11:39 Resp 16 07/23/20 11:39 BP 149/101 07/23/20 08:00 Pulse Ox 93 L 07/23/20 08:00 Intake & Output 07/22/20 07/23/20 07/23/20 18:59 06:59 18:59 Intake Total 240 520 Output Total 200 200 Balance 40 -200 520 Weight 57.6 kg Intake: Oral 240 520 Output: Urine 200 200 Other: Voiding Method Bedside Commode Bedside Commode Bedside Commode Diaper # Voids 1 1 # Bowel Movements 1 1 - Exam -Possible acute sigmoid colitis only mild colitis and the CT. C. diff for colitis and it to be ruled out as well. Continue with Rocephin and metronidazole for now. We'll also rule out covid 19 considering recent visit to and no clear-cut source of infection although infectious colitis can be the source. Plan for colonoscopy. -Atrial fibrillation: New-onset patient was started on Cardizem, start anticoagulation and beta alexsandra as per mold changer -Gastroesophageal reflux disease -Hypertension -History of mitral valve prolapse -If patient is not started on any anticoagulation with cardiology I'll start her on dvt prophylaxis - Labs CBC & Chem 7: 07/23/20 07:32 07/23/20 07:32 Labs: Abnormal Lab Results - Last 24 Hours (Table) 07/23/20 07/23/20 Range/Units 07:32 07:32 RBC 3.58 L (3.80-5.40) m/uL Hgb 10.9 L (11.4-16.0) gm/dL Plt Count 128 L (150-450) k/uL Chloride 110 H (98-107) mmol/L Glucose 103 H (74-99) mg/dL Calcium 7.7 L (8.4-10.2) mg/dL Microbiology - Last 24 Hours (Table) 07/22/20 01:27 Blood Culture - Preliminary Blood No Growth after 24 hours
[2020-07-23] MEDS ORDERED: PEG 3350-NA SULF,BICARB,CL/KCL 4,000 ML BOTTLE PO ONE (13:00)
--- NOTE | 2020-07-23 14:17 | P.PN ---
Subjective Progress Note Date: 07/23/20 CHIEF COMPLAINT: Rectal prolapse HISTORY OF PRESENT ILLNESS: Patient lying in bed comfortably. She does still report having some issues with the rectal prolapse and feeling pressure. Patient is currently not on oral anticoagulation. Therefore we will proceed proceeding with colonoscopy tomorrow. Patient is afebrile. Denies any nausea or vomiting. Diarrhea resolved. WBC 7.1 hemoglobin 10.9 potassium 3.6 PHYSICAL EXAM: VITAL SIGNS: Reviewed. GENERAL: Well-developed in no acute distress. HEENT: No sclera icterus. Extraocular movements grossly intact. Moist buccal mucosa. Head is atraumatic, normocephalic. ABDOMEN: Soft. Nondistended. Nontender. NEUROLOGIC: Alert and oriented. Cranial nerves II through XII grossly intact. ASSESSMENT: 1. Rectal prolapse 2. Nausea, vomiting and diarrhea with possible colitis 3. Paroxysmal atrial fibrillation with episode of rapid ventricular response followed by cardiology PLAN: -Patient scheduled for colonoscopy tomorrow with Dr. Foote -Start AlysiaYTEMAREK prep -Nothing by mouth after midnight -Hold on starting oral anticoagulation Physician Fence Gate Assembler note has been reviewed by physician. Signing provider agrees with the documented findings, assessment, and plan of care. Objective - Vital Signs Vital signs: Vital Signs Temp 98.5 F 07/23/20 08:00 Pulse 124 H 07/23/20 11:39 Resp 16 07/23/20 11:39 BP 149/101 07/23/20 08:00 Pulse Ox 93 L 07/23/20 08:00 Intake & Output 07/22/20 07/23/20 07/23/20 18:59 06:59 18:59 Intake Total 240 520 Output Total 200 200 Balance 40 -200 520 Weight 57.6 kg Intake: Oral 240 520 Output: Urine 200 200 Other: Voiding Method Bedside Commode Bedside Commode Bedside Commode Diaper # Voids 1 1 # Bowel Movements 1 1 - Labs CBC & Chem 7: 07/23/20 07:32 07/23/20 07:32 Labs: Abnormal Lab Results - Last 24 Hours (Table) 07/23/20 07/23/20 Range/Units 07:32 07:32 RBC 3.58 L (3.80-5.40) m/uL Hgb 10.9 L (11.4-16.0) gm/dL Plt Count 128 L (150-450) k/uL Chloride 110 H (98-107) mmol/L Glucose 103 H (74-99) mg/dL Calcium 7.7 L (8.4-10.2) mg/dL Microbiology - Last 24 Hours (Table) 07/22/20 01:27 Blood Culture - Preliminary Blood No Growth after 24 hours
[2020-07-23] MEDS ORDERED: METOPROLOL TARTRATE 25 MG TAB PO STA (16:44)
[2020-07-23] MEDS ORDERED: RIVAROXABAN 15 MG TAB PO SCH (17:30)
[2020-07-23] MEDS: METOPROLOL TARTRATE 50 MG TAB PO SCH (20:08)
[2020-07-24] MEDS: BUTALB/APAP/CAFF 50-325-40MG TAB PO PRN ×3 (00:19→17:11)
[2020-07-24] MEDS: metroNIDAZOLE-NS PMX 500 MG in SALINE 1 100ML.BAG IVPB SCH ×3 (06:09→21:43)
[2020-07-24] MEDS: CARBIDOPA-LEVODOPA 25-100 MG 1 EACH TAB PO SCH ×5 (06:10→23:08)
[2020-07-24 08:22] LABS: African American GFR (CKD) >90 (>60 ml/min/1.73 sqM); Anion Gap 5 mmol/L; Blood Urea Nitrogen 12 mg/dL (7-17); Calcium 7.8 mg/dL (8.4-10.2); Carbon Dioxide 25 mmol/L (22-30); Chloride 108 mmol/L (98-107); Glucose 103 mg/dL (74-99); Non-African American GFR(CKD) 87 (>60 ml/min/1.73 sqM); Potassium 3.1 mmol/L (3.5-5.1); Sodium 138 mmol/L (137-145)
[2020-07-24] MEDS ORDERED: Potassium Replacement Protocol 1 EACH MISC MISCELLANE PRN ×2 (08:23→11:59)
[2020-07-24] MEDS ORDERED: Magnesium Replacement Protocol 1 EACH MISC MISCELLANE PRN (08:23)
[2020-07-24] MEDS: SERTRALINE 50 MG TAB PO SCH (08:36)
[2020-07-24] MEDS: METOPROLOL TARTRATE 50 MG TAB PO SCH ×3 (08:36→21:42)
[2020-07-24] MEDS: BACLOFEN 10 MG TAB PO SCH ×3 (08:37→21:42)
[2020-07-24] MEDS: FLECAINIDE 50 MG TAB PO SCH ×2 (08:38→23:07)
--- NOTE | 2020-07-24 10:49 | P.PN ---
Subjective Progress Note Date: 07/24/20 This is an 79-year-old female with documented history of Parkinson's disease, hypertension, mitral valve prolapse, paroxysmal atrial fibrillation, she follows with Dr. Chand in the office. Patient had been on anticoagulantion in the past on Eliquis, she had an ALLERGIC reaction to this, which is why she's not currently on anticoagulation. History was obtained from the medical record as the patient appears to be confused, apparently the daughter gave most of the history. Patient presented to the hospital with symptoms of nausea, vomiting, and diarrhea for 24 hour duration. She was also experiencing some abdominal cramping and low-grade fever. Her EKG on presentation here showed atrial fibrillation with moderately rapid ventricular response. CT of the abdomen and pelvis showed minimal free fluid in the abdomen. Her temperature has been up to 101.1 here, this morning 99.3. White blood cell count 11.4, hemoglobin 12.1, platelet count 188. Sodium 136, potassium 4.1, BUN 30, creatinine 0.5. Blood pressure 93/60 with a heart rate in the 192% on room air. She was given a Cardizem bolus as well as one dose of IV Lopressor on admission here. Her home medications include Tenormin 25 mg twice a day, flat and I 50 twice a day, Sinemet, failure status, aspirin, and Zoloft. Patient seen and examined this morning, much more alert and oriented today. She states she is no longer having loose stools. Blood pressure 137/80 with a heart rate in the 90s to low 120s. White blood cell count 7.1, hemoglobin 10.9, platelet count 128. Sodium 137, potassium 3.6, BUN 17, creatinine 0.5. TSH is normal. An echocardiogram with Doppler study was performed which revealed an ejection fraction of 45-50%. She continues to be in atrial fibrillation which is chronic. I spoke with the patient at length this morning regarding anticoagulation. She did have an ALLERGIC reaction to Eliquis but stress test trying xarelto. Explaining her risk for stroke overall being high. She will speak with her daughter in detail about this, and I will follow-up with her later on today. 07/24/2020 Patient was seen and examined this morning, she is refusing to have any procedures done, refusing colonoscopy. Just wants to continue medical therapy. She feels very weak this morning but is still on clear liquids. Blood pressure 136/80 with a heart rate in the 100s to 1 teens, 94% on room air. Sodium 138, potassium 3.1, BUN 12, creatinine 0.5. Objective - Vital Signs Vital signs: Vital Signs Temp 98.3 F 07/24/20 08:00 Pulse 99 07/24/20 08:00 Resp 16 07/24/20 08:00 BP 136/85 07/24/20 08:00 Pulse Ox 94 L 07/24/20 08:00 Intake & Output 07/23/20 07/24/20 07/24/20 18:59 06:59 18:59 Intake Total 940 0 Output Total 200 Balance 940 -200 Weight 58.7 kg Intake: Oral 940 0 Output: Urine 200 Other: Voiding Method Bedside Commode Bedside Commode Bedside Commode # Voids 1 1 # Bowel Movements 7 1 - Exam PHYSICAL EXAMINATION: GENERAL: 79-year-old female in no acute distress at the time of my examination HEENT: Head is atraumatic, normocephalic. Pupils equal, round. Sclera anicteric. Conjunctiva are clear. Mucous membranes of the mouth are moist. Neck is supple. There is no elevated jugular venous pressure. No carotid bruit is heard. HEART EXAMINATION: Heart S1 and S2 irregularly irregular a systolic murmur is heard CHEST EXAMINATION: Lungs are clear to auscultation and precussion. No chest wall tenderness is noted on palpation or with deep breathing. ABDOMEN: Soft, nontender. Bowel sounds are heard. No organomegaly noted. EXTREMITIES: 2+ peripheral pulses with no evidence of peripheral edema and no calf tenderness noted. NEUROLOGIC patient is awake, alert and oriented 3. - Labs CBC & Chem 7: 07/23/20 07:32 07/24/20 07:52 Labs: Abnormal Lab Results - Last 24 Hours (Table) 07/24/20 Range/Units 07:52 Potassium 3.1 L (3.5-5.1) mmol/L Chloride 108 H (98-107) mmol/L Glucose 103 H (74-99) mg/dL Calcium 7.8 L (8.4-10.2) mg/dL Microbiology - Last 24 Hours (Table) 07/22/20 01:27 Blood Culture - Preliminary Blood No Growth after 48 hours Assessment and Plan Plan: Assessment and plan #1 symptoms of nausea vomiting and diarrhea, sepsis, possible colitis. Rule out Covid 19 #2 paroxysmal atrial fibrillation, on beta alexsandra and flecainide as an outpatient. She is not currently on anticoagulation because of an ALLERGIC reaction to Eliquis in the past #3 hypertension #4 mitral valve prolapse #5 GERD Plan We will increase the metoprolol to 50 mg by mouth 3 times a day . He also had a lengthy discussion with the patient regarding initiating xarelto 15 mg daily. She did have an ALLERGIC reaction to Eliquis in the past but needs to be on anticoagulation for stroke prevention. She is going to speak with her daughter about this and we will touch base again later today. I will also give the daughter called regarding the initiation of Xarelto. Further recommendations patient will then follow. DNP note has been reviewed, I agree with a documented findings and plan of care. Patient was seen and examined.
--- NOTE | 2020-07-24 12:06 | P.PN ---
Progress Note - Text Progress Note Date: 07/24/20 This is an addendum to the progress note dictated today, I spoke with the patient's daughter today regarding initiating Xarelto for anticoagulation. The daughter is aware that the patient had an ALLERGIC reaction to Eliquis in the past but agrees to the patient being started on xarelto. We will start her on xarelto 15 mg by mouth daily today continue to monitor the patient for 24 hours. The plan is for her to be transferred to an extended care facility tomorrow. DNP note has been reviewed, I agree with a documented findings and plan of care. Patient was seen and examined.
[2020-07-24] MEDS: POTASSIUM CHLORIDE ER 20 MEQ TAB.ER PO SCH ×3 (12:40→16:17)
[2020-07-24] MEDS: RIVAROXABAN 15 MG TAB PO SCH (12:43)
--- NOTE | 2020-07-24 14:01 | P.PN ---
Subjective Progress Note Date: 07/24/20 CHIEF COMPLAINT: Rectal prolapse HISTORY OF PRESENT ILLNESS: seen with Dr. Foote. Patient lying in bed comfortably. She does still report having some issues with the rectal prolapse and feeling pressure. Patient's family did not want to proceed with colonoscopy at this time and wants to do an outpatient. Colonoscopy has been canceled. Patient is afebrile. Denies any nausea or vomiting. Potassium 3.1, potassium is being replaced. magnesium 1.9 PHYSICAL EXAM: VITAL SIGNS: Reviewed. GENERAL: Well-developed in no acute distress. HEENT: No sclera icterus. Extraocular movements grossly intact. Moist buccal mucosa. Head is atraumatic, normocephalic. ABDOMEN: Soft. Nondistended. Nontender. NEUROLOGIC: Alert and oriented. Cranial nerves II through XII grossly intact. ASSESSMENT: 1. Rectal prolapse 2. Nausea, vomiting and diarrhea with possible colitis 3. Paroxysmal atrial fibrillation with episode of rapid ventricular response followed by cardiology 4. Hypokalemia PLAN: -Recommend colonoscopy outpatient when stable Physician Chief Cloth Finishing Range Operator note has been reviewed by physician. Signing provider agrees with the documented findings, assessment, and plan of care. Objective - Vital Signs Vital signs: Vital Signs Temp 98.3 F 07/24/20 08:00 Pulse 117 H 07/24/20 12:00 Resp 16 07/24/20 12:00 BP 134/86 07/24/20 12:00 Pulse Ox 95 07/24/20 12:00 Intake & Output 07/23/20 07/24/20 07/24/20 18:59 06:59 18:59 Intake Total 940 0 Output Total 400 Balance 940 -400 Weight 58.7 kg Intake: Oral 940 0 Output: Urine 400 Other: Voiding Method Bedside Commode Bedside Commode Bedside Commode # Voids 1 1 1 # Bowel Movements 7 1 - Labs CBC & Chem 7: 07/23/20 07:32 07/24/20 07:52 Labs: Abnormal Lab Results - Last 24 Hours (Table) 07/24/20 Range/Units 07:52 Potassium 3.1 L (3.5-5.1) mmol/L Chloride 108 H (98-107) mmol/L Glucose 103 H (74-99) mg/dL Calcium 7.8 L (8.4-10.2) mg/dL Microbiology - Last 24 Hours (Table) 07/22/20 01:27 Blood Culture - Preliminary Blood No Growth after 48 hours
[2020-07-24] MEDS ORDERED: MECLIZINE 25 MG TAB PO STA (17:54)
[2020-07-24] MEDS ORDERED: ALPRAZolam 0.25 MG TAB PO PRN (17:55)
[2020-07-24 20:59] VITALS: TEMP 97.5
[2020-07-24] MEDS: SODIUM CHLORIDE 0.9% 1,000 ML IV SCH ×2 (21:32→21:44)
--- NOTE | 2020-07-24 23:10 | P.PN ---
Subjective From records: The patient is a pleasant 79-year-old female came in now with the complaints of diarrhea watery with diffuse abdominal cramping restarted yesterday patient developed had fever last night. Patient's abdominal pain is cramping in sensa tion. Patient was told patient may have rectal prolapse by family members unsure whether it's hemorrhoid coming out of the rectum. Patient also found to be in atrial fibrillation with rapid ventricular rate was started on Cardizem and do not have any previous echocardiogram available at this time. Patient denied any cough patient denied any URI symptoms. Patient was exposed to sick contacts and had a recent general also has diarrhea. Subjective: 07/23/2020, this is a first time taking care of the patient Patient is lying Comfortable, she denies chest pain or dyspnea, no abdominal pain, she was able to eat little bit only she had nausea but no vomiting. Currently she has no diarrhea and shows a regular bowel movement Patient she is to follow up with her software configuration analyst Dr. Clancy, patient was not on Eliquis which give her facial swelling, she is not on any blood thinner. Patient also found to have acute sigmoid diverticulitis and she is going for colonoscopy tomorrow and after that patient most likely will be started on xarelto 07/24/2020 Patient was awakened alert, she was still feeling weak, she has low appetite and she couldn't finish only 25-50% of her diet, she has little diarrhea yesterday and last night however this morning was normal as per patient. Patient refused colonoscopy and she wants to be done as an outpatient, so it was counseled by surgery team. Quilt Maker also following the patient for her A. fib and they started on Xarelto. Patient felt some dizziness which is controlled with medication. Keep monitoring and following the patient closely. Review of systems CONSTITUTIONAL: No fever, no malaise, no fatigue. HEENT: No recent visual problems or hearing problems. Denied any sore throat. CARDIOVASCULAR: No orthopnea, PND, no palpitations, no syncope. PULMONARY: No shortness of breath, no cough, no hemoptysis. GASTROINTESTINAL: No diarrhea, no nausea, no vomiting, no abdominal pain. Normoactive bowel sounds. NEUROLOGICAL: No headaches, no weakness, no numbness. Active Medications Generic Name Dose Route Start Last Admin Trade Name Freq PRN Reason Stop Dose Admin Acetaminophen/Butalbital/Caffeine 1 each 07/22/20 10:38 07/24/20 17:11 Butalb/Apap/Caff 50-325-40mg Tab PO 1 each TID PRN Administration Migraine Headache Alprazolam 0.25 mg 07/24/20 17:55 Alprazolam 0.25 Mg Tab PO QID PRN Anxiety Baclofen 10 mg 07/22/20 16:00 07/24/20 21:42 Baclofen 10 Mg Tab PO 10 mg TID KRISTA Administration Carbidopa/Levodopa 1 each 07/22/20 11:00 07/24/20 23:08 Carbidopa-Levodopa 25-100 Mg 1 Each Tab PO 1 each 5XD KRISTA Administration Flecainide Acetate 50 mg 07/22/20 12:00 07/24/20 23:07 Flecainide 50 Mg Tab PO 50 mg BID@1200,2330 KRISTA Administration Sodium Chloride 1,000 mls @ 75 mls/hr 07/22/20 03:30 07/24/20 21:44 Saline 0.9% IV 75 mls/hr .[id number] KRISTA Administration Ceftriaxone Sodium 1 gm/ 50 mls @ 100 mls/hr 07/23/20 09:00 07/24/20 08:37 Sodium Chloride IVPB 100 mls/hr Q24HR KRISTA Administration Metronidazole 500 mg/ IV 100 mls @ 100 mls/hr 07/22/20 14:00 07/24/20 21:43 Solution IVPB 100 mls/hr Q8H KRISTA Administration Metoprolol Tartrate 50 mg 07/24/20 16:00 07/24/20 21:42 Metoprolol Tartrate 50 Mg Tab PO 50 mg TID KRISTA Administration Miscellaneous Information 1 each 07/24/20 08:23 Magnesium Replacement Protocol 1 Each Misc MISCELLANE DAILY PRN Per Protocol Protocol Miscellaneous Information 1 each 07/24/20 11:59 Potassium Replacement Protocol 1 Each Misc MISCELLANE DAILY PRN Per Protocol Protocol Naloxone HCl 0.2 mg 07/22/20 03:17 Naloxone 0.4 Mg/Ml 1 Ml Vial IV Q2M PRN Opioid Reversal Rivaroxaban 15 mg 07/24/20 12:15 07/24/20 12:43 Rivaroxaban 15 Mg Tab PO 15 mg DAILY KRISTA Administration Sertraline HCl 50 mg 07/23/20 09:00 07/24/20 08:36 Sertraline 50 Mg Tab PO 50 mg DAILY KRISTA Administration Objective - Vital Signs Vital signs: Vital Signs Temp 98.3 F 07/24/20 08:00 Pulse 117 H 07/24/20 12:00 Resp 16 07/24/20 16:00 BP 134/86 07/24/20 12:00 Pulse Ox 95 07/24/20 12:00 Intake & Output 07/23/20 07/24/20 07/24/20 18:59 06:59 18:59 Intake Total 940 250 Output Total 400 Balance 940 -150 Weight 58.7 kg Intake: Oral 940 250 Output: Urine 400 Other: Voiding Method Bedside Commode Bedside Commode Bedside Commode # Voids 1 1 1 # Bowel Movements 7 2 - Exam -Possible acute sigmoid colitis only mild colitis and the CT. C. diff for colitis and it to be ruled out as well. Continue with Rocephin and metronidazole for now. We'll also rule out covid 19 considering recent visit to and no clear-cut source of infection although infectious colitis can be the source. Plan for colonoscopy. -Atrial fibrillation: New-onset patient was started on Cardizem, start anticoagulation and beta alexsandra as per software configuration analyst -Gastroesophageal reflux disease -Hypertension -History of mitral valve prolapse -If patient is not started on any anticoagulation with cardiology I'll start her on dvt prophylaxis - Labs CBC & Chem 7: 07/23/20 07:32 07/24/20 07:52 Labs: Abnormal Lab Results - Last 24 Hours (Table) 07/24/20 Range/Units 07:52 Potassium 3.1 L (3.5-5.1) mmol/L Chloride 108 H (98-107) mmol/L Glucose 103 H (74-99) mg/dL Calcium 7.8 L (8.4-10.2) mg/dL Microbiology - Last 24 Hours (Table) 07/22/20 01:27 Blood Culture - Preliminary Blood No Growth after 48 hours Assessment and Plan Assessment: -Sepsis: Possibility of colitis only mild colitis and the CT. continue with antibiotics. Follow-up with surgery for outpatient colonoscopy as patient refused inpatient colonoscopy -Atrial fibrillation: New-onset patient. Follow-up software configuration analyst recommendation. Patient is a started on Xarelto. Rate is controlled. -Generalized weakness, physical therapy recommended ECF for subacute rehab -Gastroesophageal reflux disease -Hypertension -History of mitral valve prolapse DVT prophylaxis: Xarelto
[2020-07-25] MEDS: BUTALB/APAP/CAFF 50-325-40MG TAB PO PRN ×4 (01:02→16:50)
[2020-07-25] MEDS: metroNIDAZOLE-NS PMX 500 MG in SALINE 1 100ML.BAG IVPB SCH ×2 (06:06→15:28)
[2020-07-25] MEDS: CARBIDOPA-LEVODOPA 25-100 MG 1 EACH TAB PO SCH ×3 (06:07→16:51)
[2020-07-25 08:57] LABS: African American GFR (CKD) >90 (>60 ml/min/1.73 sqM); Anion Gap 7 mmol/L; Blood Urea Nitrogen 13 mg/dL (7-17); Calcium 8.1 mg/dL (8.4-10.2); Carbon Dioxide 24 mmol/L (22-30); Chloride 108 mmol/L (98-107); Glucose 124 mg/dL (74-99); Magnesium 1.8 mg/dL (1.6-2.3); Non-African American GFR(CKD) 87 (>60 ml/min/1.73 sqM); Potassium 3.3 mmol/L (3.5-5.1); Sodium 139 mmol/L (137-145)
[2020-07-25] MEDS: METOPROLOL TARTRATE 50 MG TAB PO SCH ×2 (09:52→16:51)
[2020-07-25] MEDS: SERTRALINE 50 MG TAB PO SCH (09:52)
[2020-07-25] MEDS: BACLOFEN 10 MG TAB PO SCH ×2 (09:52→16:51)
[2020-07-25] MEDS: RIVAROXABAN 15 MG TAB PO SCH (09:53)
[2020-07-25] MEDS ORDERED: POTASSIUM CHLORIDE ER 20 MEQ TAB.ER PO STA (11:00)
[2020-07-25 11:18] LABS: Basophils % (A) 0 %; Eosinophils # (A) 0.1 k/uL (0-0.7); Eosinophils % (A) 1 %; HCT 36.9 % (34.0-46.0); HGB 12.5 gm/dL (11.4-16.0); Lymphocytes # (A) 0.6 k/uL (1.0-4.8); Lymphocytes % (A) 8 %; MCHC 33.8 g/dL (31.0-37.0); MCV 94.6 fL (80.0-100.0); Mean Platelet Volume 8.6; Monocytes # (A) 0.6 k/uL (0-1.0); Monocytes % (A) 8 %; Neutrophils # (A) 6.5 k/uL (1.3-7.7); Neutrophils % (A) 82 %; Platelet Count 192 k/uL (150-450); RDW 13.7 % (11.5-15.5); WBC 7.9 k/uL (3.8-10.6)
[2020-07-25] MEDS: FLECAINIDE 50 MG TAB PO SCH (11:29)
[2020-07-25] MEDS: SODIUM CHLORIDE 0.9% 1,000 ML IV SCH (11:31)
[2020-07-25] MEDS ORDERED: MAGNESIUM SULFATE-D5W PMX 1 GM in DEXTROSE/WATER 1 100ML.BAG IVPB ONE (12:00)
--- NOTE | 2020-07-25 12:51 | P.PN ---
Subjective Progress Note Date: 07/25/20 This is an 79-year-old female with documented history of Parkinson's disease, hypertension, mitral valve prolapse, paroxysmal atrial fibrillation, she follows with Dr. Chand in the office. Patient had been on anticoagulantion in the past on Eliquis, she had an ALLERGIC reaction to this, which is why she's not currently on anticoagulation. History was obtained from the medical record as the patient appears to be confused, apparently the daughter gave most of the history. Patient presented to the hospital with symptoms of nausea, vomiting, and diarrhea for 24 hour duration. She was also experiencing some abdominal cramping and low-grade fever. Her EKG on presentation here showed atrial fibrillation with moderately rapid ventricular response. CT of the abdomen and pelvis showed minimal free fluid in the abdomen. Her temperature has been up to 101.1 here, this morning 99.3. White blood cell count 11.4, hemoglobin 12.1, platelet count 188. Sodium 136, potassium 4.1, BUN 30, creatinine 0.5. Blood pressure 93/60 with a heart rate in the 192% on room air. She was given a Cardizem bolus as well as one dose of IV Lopressor on admission here. Her home medications include Tenormin 25 mg twice a day, flat and I 50 twice a day, Sinemet, failure status, aspirin, and Zoloft. Patient seen and examined this morning, much more alert and oriented today. She states she is no longer having loose stools. Blood pressure 137/80 with a heart rate in the 90s to low 120s. White blood cell count 7.1, hemoglobin 10.9, platelet count 128. Sodium 137, potassium 3.6, BUN 17, creatinine 0.5. TSH is normal. An echocardiogram with Doppler study was performed which revealed an ejection fraction of 45-50%. She continues to be in atrial fibrillation which is chronic. I spoke with the patient at length this morning regarding anticoagulation. She did have an ALLERGIC reaction to Eliquis but stress test trying xarelto. Explaining her risk for stroke overall being high. She will speak with her daughter in detail about this, and I will follow-up with her later on today. 07/24/2020 Patient was seen and examined this morning, she is refusing to have any procedures done, refusing colonoscopy. Just wants to continue medical therapy. She feels very weak this morning but is still on clear liquids. Blood pressure 136/80 with a heart rate in the 100s to 1 teens, 94% on room air. Sodium 138, potassium 3.1, BUN 12, creatinine 0.5. 07/25/2020 Patient was seen and examined this morning she complains of feeling a little weak today, although she did complain of mild weakness yesterday to. Overall she thinks she's feeling a little bit stronger. She was increased to a full diet. She is currently on Xarelto. Anticipating a possible transferred to [facility] today. Objective - Vital Signs Vital signs: Vital Signs Temp 97.5 F L 07/24/20 20:54 Pulse 95 07/25/20 08:00 Resp 18 07/25/20 08:00 BP 153/100 07/25/20 08:00 Pulse Ox 94 L 07/25/20 08:00 Intake & Output 07/24/20 07/25/20 07/25/20 18:59 06:59 18:59 Intake Total 370 Output Total 400 Balance -30 Weight 57.6 kg Intake: Oral 370 Output: Urine 400 Other: Voiding Method Bedside Commode Bedside Commode # Voids 1 1 # Bowel Movements 2 1 - Exam PHYSICAL EXAMINATION: GENERAL: 79-year-old female in no acute distress at the time of my examination HEENT: Head is atraumatic, normocephalic. Pupils equal, round. Sclera anicteric. Conjunctiva are clear. Mucous membranes of the mouth are moist. Neck is supple. There is no elevated jugular venous pressure. No carotid bruit is heard. HEART EXAMINATION: Heart S1 and S2 irregularly irregular a systolic murmur is heard CHEST EXAMINATION: Lungs are clear to auscultation and precussion. No chest wall tenderness is noted on palpation or with deep breathing. ABDOMEN: Soft, nontender. Bowel sounds are heard. No organomegaly noted. EXTREMITIES: 2+ peripheral pulses with no evidence of peripheral edema and no calf tenderness noted. NEUROLOGIC patient is awake, alert and oriented 3. - Labs CBC & Chem 7: 07/25/20 07:29 07/25/20 07:29 Labs: Abnormal Lab Results - Last 24 Hours (Table) 07/25/20 07/25/20 Range/Units 07:29 07:29 Lymphocytes # 0.6 L (1.0-4.8) k/uL Potassium 3.3 L (3.5-5.1) mmol/L Chloride 108 H (98-107) mmol/L Glucose 124 H (74-99) mg/dL Calcium 8.1 L (8.4-10.2) mg/dL Microbiology - Last 24 Hours (Table) 07/22/20 01:27 Blood Culture - Preliminary Blood No Growth after 72 hours Assessment and Plan Plan: Assessment and plan #1 symptoms of nausea vomiting and diarrhea, sepsis, possible colitis. Rule out Covid 19 #2 paroxysmal atrial fibrillation, on beta alexsandra and flecainide as an outpatient. She is not currently on anticoagulation because of an ALLERGIC reaction to Eliquis in the past #3 hypertension #4 mitral valve prolapse #5 GERD Plan From cardiology's perspective, we will discontinue the IV Lasix and manager of change to oral diuretics. Patient may be able to be discharged home today from our perspective. Follow-up appointment in the office post discharge. DNP note has been reviewed, I agree with a documented findings and plan of care. Patient was seen and examined.
--- NOTE | 2020-07-25 12:54 | P.PN ---
Subjective Progress Note Date: 07/25/20 CHIEF COMPLAINT: Rectal prolapse HISTORY OF PRESENT ILLNESS: Patient seen with Dr. Foote. Patient lying in bed comfortably. She does still report having some issues with the rectal prolapse and feeling pressure. Patient's family did not want to proceed with colonoscopy at this time and wants to do an outpatient. Colonoscopy was canceled. Patient is afebrile. Denies any nausea or vomiting. Potassium 3.3 Mg 1.8 PHYSICAL EXAM: VITAL SIGNS: Reviewed. GENERAL: Well-developed in no acute distress. HEENT: No sclera icterus. Extraocular movements grossly intact. Moist buccal mucosa. Head is atraumatic, normocephalic. ABDOMEN: Soft. Nondistended. Nontender. NEUROLOGIC: Alert and oriented. Cranial nerves II through XII grossly intact. ASSESSMENT: 1. Rectal prolapse 2. Nausea, vomiting and diarrhea with possible colitis 3. Paroxysmal atrial fibrillation with episode of rapid ventricular response followed by cardiology 4. Hypokalemia and hypomagnesemia being replaced PLAN: -Recommend colonoscopy outpatient when stable -Patient follow-up with Dr. Foote in 1 week after discharge Physician Generator Assembler note has been reviewed by physician. Signing provider agrees with the documented findings, assessment, and plan of care. Objective - Vital Signs Vital signs: Vital Signs Temp 97.5 F L 07/24/20 20:54 Pulse 95 07/25/20 08:00 Resp 18 07/25/20 08:00 BP 153/100 07/25/20 08:00 Pulse Ox 94 L 07/25/20 08:00 Intake & Output 07/24/20 07/25/20 07/25/20 18:59 06:59 18:59 Intake Total 370 Output Total 400 Balance -30 Weight 57.6 kg Intake: Oral 370 Output: Urine 400 Other: Voiding Method Bedside Commode Bedside Commode # Voids 1 1 # Bowel Movements 2 1 - Labs CBC & Chem 7: 07/25/20 07:29 07/25/20 07:29 Labs: Abnormal Lab Results - Last 24 Hours (Table) 07/25/20 07/25/20 Range/Units 07:29 07:29 Lymphocytes # 0.6 L (1.0-4.8) k/uL Potassium 3.3 L (3.5-5.1) mmol/L Chloride 108 H (98-107) mmol/L Glucose 124 H (74-99) mg/dL Calcium 8.1 L (8.4-10.2) mg/dL Microbiology - Last 24 Hours (Table) 07/22/20 01:27 Blood Culture - Preliminary Blood No Growth after 72 hours
[2020-07-25] MEDS ORDERED: CHOLESTYRAMINE (WITH SUGAR) 4 GM PACKET PO SCH (14:05)
[2020-07-25 14:28] VITALS: BP 104/53; PULSE 63; RESP 16
--- NOTE | 2020-07-25 15:31 | P.DS ---
Providers Date of admission: 07/22/20 03:17 Attending physician: David Sher Consults: 07/22/20 03:18 Consult Physician Urgent Consulting Provider: [facility] Consult Reason/Comments: RVR Do you want consulting provider notified?: Yes, Notify in am 07/22/20 10:42 Consult Physician Routine Consulting Provider: Tian Foote Consult Reason/Comments: Rectal prolapse Do you want consulting provider notified?: Yes Primary care physician: Juan Miguel Monique MD Hospital Course: iagnoses: -Sepsis: Secondary to gastroenteritis and sigmoid colitis, improving with antibiotics. She will need outpatient colonoscopy -Atrial fibrillation: Continue with Xarelto. Rate is controlled. -Generalized weakness, physical therapy recommended ECF for subacute rehab -Gastroesophageal reflux disease -Hypertension -History of mitral valve prolapse Hospital course: The patient is a pleasant 79-year-old female came in now with the complaints of diarrhea watery with diffuse abdominal cramping with fever.CT of the abdomen and pelvis showing thickening of the wall of the sigmoid: Suggestive of nonspecific colitis. Patient has been evaluated by surgical team, she was treated with antibiotics, however patient refused inpatient colonoscopy and it was refers and as stated for outpatient upon patient preferences. Patient's symptoms improved and her diarrhea , yesterday she had only 3 bowel movements, small amount, mixed with loose and formed mery. Her abdominal pain improved as well.she is tolerating diet well. Patient thinks she can be discharged today. And cardiology team Patient was cleared for discharge by surgery team WILL be discharged on oral antibiotic Also patient has been followed closely by assault amphibious vehicle officer for A. fib, rate controlled and patient was started on Xarelto by cardiology team which is tolerated well by the patient and patient was cleared for discharge by assault amphibious vehicle officer Problems and management plan were discussed with the patient and he verbalized understanding and acceptance Patient was found stable and can be discharged home however he needs follow-up as an outpatient. Patient was instructed to follow up with PCP Dr. Monique within one week and patient agrees. Also patient was instructed to follow up with her assault amphibious vehicle officer Dr. Clancy in 2 weeks and her surgeon Dr. Foote in one week, patient wants to call and make her on appointment. I discussed this re commendation also to the son Mr. Wallace was at bedside, and he will help and make an appointment. And also I discussed with patient and the son the indications for colonoscopy given her sigmoid colitis and to rule out lesion including but not limited to cancer, they verbalized understanding and acceptance Gen: patient is a AAOx3, no distress CVS: S1-S2, RRR, no murmur Lungs: B/L CTA, no wheezing Abdomen: soft, no distention, no tenderness, positive bowel sounds Extremity: no leg edema or induration Time spent more than 35 minutes Patient Condition at Discharge: Serious Plan - Discharge Summary Discharge Rx Participant: Yes New Discharge Prescriptions: New Butalb/APAP/Caff 50-325-40Mg [Fioricet 50-325-40] 1 each PO TID PRN #6 tab PRN Reason: Migraine Headache Metoprolol Tartrate [Lopressor] 50 mg PO TID tab Cefuroxime Axetil [Ceftin] 500 mg PO BID 10 Days #20 tab metroNIDAZOLE [Flagyl] 500 mg PO Q8HR 8 Days #24 tab Potassium Chloride ER [K-Dur 10] 10 meq PO DAILY 5 Days #5 tab.er.prt Rivaroxaban [Xarelto] 15 mg PO DAILY tab Cholestyramine (with Sugar) [Questran Packet] 4 gm PO DAILY@1000 PRN 2 Days #4 packet PRN Reason: Diarrhea Continue Aspirin 81 mg PO HS Sertraline [Zoloft] 50 mg PO DAILY Butalb/Acetaminophen/Caffeine [Fioricet 50-325-40] 1 - 2 tab PO TID PRN PRN Reason: Migraine Headache Baclofen [Lioresal] 10 mg PO Q6H Flecainide [Tambocor] 50 mg PO BID@1200,2330 Carbidopa-Levodopa 25-100 mg [Sinemet 25-100 mg] 1 tab PO 5XD Methyl Salicylate/Menthol [Salonpas Patch] 1 patch TOPICAL BID Discontinued atenoloL [Tenormin] 25 mg PO BID@1200,2330 Discharge Medication List Aspirin 81 mg PO HS 10/07/14 [History] Baclofen [Lioresal] 10 mg PO Q6H 10/07/14 [History] Butalb/Acetaminophen/Caffeine [Fioricet 50-325-40] 1 - 2 tab PO TID PRN 10/07/14 [History] Sertraline [Zoloft] 50 mg PO DAILY 10/07/14 [History] Carbidopa-Levodopa 25-100 mg [Sinemet 25-100 mg] 1 tab PO 5XD 07/22/20 [History] Flecainide [Tambocor] 50 mg PO BID@1200,2330 07/22/20 [History] Methyl Salicylate/Menthol [Salonpas Patch] 1 patch TOPICAL BID 07/22/20 [History] Butalb/APAP/Caff 50-325-40Mg [Fioricet 50-325-40] 1 each PO TID PRN #6 tab 07/24/20 [Rx] Metoprolol Tartrate [Lopressor] 50 mg PO TID tab 07/24/20 [Rx] Cefuroxime Axetil [Ceftin] 500 mg PO BID 10 Days #20 tab 07/25/20 [Rx] Cholestyramine (with Sugar) [Questran Packet] 4 gm PO DAILY@1000 PRN 2 Days #4 packet 07/25/20 [Rx] Potassium Chloride ER [K-Dur 10] 10 meq PO DAILY 5 Days #5 tab.er.prt 07/25/20 [Rx] Rivaroxaban [Xarelto] 15 mg PO DAILY tab 07/25/20 [Rx] metroNIDAZOLE [Flagyl] 500 mg PO Q8HR 8 Days #24 tab 07/25/20 [Rx] Follow up Appointment(s)/Referral(s): Gurvinder Chand MD [STAFF PHYSICIAN] - 2 Weeks Juan Miguel Monique MD [Primary Care Provider] - 1-2 days [facility], [NON-STAFF] - 1-2 Days Tian Foote MD [STAFF PHYSICIAN] - 1 Week Activity/Diet/Wound Care/Special Instructions: Heart healthy diet Activity is limited till you see your doctor Discharge Disposition: TRANSFER TO SNF/ECF
[2020-07-26] MEDS ORDERED: POTASSIUM CHLORIDE ER 10 MEQ TAB.ER.PRT PO SCH (09:00)
== END 2020-07-25 17:12 | DRG 872 ==
LOC: EC 23:51 → 3SCARD 07-22 03:17
PROVIDERS: ADMIT Hospitalist; ATTEND Hospitalist
DX: A41.9 Sepsis, unspecified organism (principal); K57.32 Diverticulitis of large intestine without perforation or abscess without bleeding; E86.0 Dehydration; E87.6 Hypokalemia; F32.9 Major depressive disorder, single episode, unspecified; F41.9 Anxiety disorder, unspecified; I10 Essential (primary) hypertension; K21.9 Gastro-esophageal reflux disease without esophagitis; I48.0 Paroxysmal atrial fibrillation; E83.42 Hypomagnesemia; Z20.828 Contact with and (suspected) exposure to other viral communicable diseases; K62.3 Rectal prolapse; K52.9 Noninfective gastroenteritis and colitis, unspecified; R53.1 Weakness; G20 Parkinson's disease; K64.9 Unspecified hemorrhoids; Z79.899 Other long term (current) drug therapy; Z79.82 Long term (current) use of aspirin; Z90.49 Acquired absence of other specified parts of digestive tract; Z98.41 Cataract extraction status, right eye; Z87.891 Personal history of nicotine dependence; Z86.79 Personal history of other diseases of the circulatory system
CPT/HCPCS: 36415; 51701; 71046; 74177; 80048; 80053; 81003; 83605; 83735; 84443; 85025; 85027; 85610; 85730; 87040; 93005; 93306; 96374; 96375; 99285

== ENCOUNTER → 2021-03-31 | Outpatient (CLI) | payer MEDICARE, OTHER ==
--- NOTE | 2021-03-31 15:51 | US ---
LOWER EXTREMITY VENOUS INSUFFICIENCY CLINICAL HISTORY: NHW. Nonhealing wound SIDE PERFORMED: Bilateral 1) Color flow is present and patency is documented in the following vessels. No DVT or SVT is noted . Common Femoral Vein Deep Femoral Vein Femoral Vein Popliteal Vein Proximal Calf Veins Greater Saph Vein Upper Small Saph Vein 2) There is venous reflux noted at the following venous levels: None IMPRESSION: No ultrasound evidence for acute deep or superficial venous thrombosis bilaterally.
--- NOTE | 2021-04-08 12:33 | P.ARTDOP ---
Arterial Doppler LOWER EXTREMITY ARTERIAL DOPPLER: DATE OF SERVICE: 03/31/2021 Reason for study: Left foot ulcer. Doppler waveforms: Multiphasic bilaterally throughout. Pulse volume recording: []. Pressure gradients: None. Ankle-brachial indices: Greater than 1. Toe brachial indices: 0.87 on the right, 0.84 on the left Impression: Normal study.
== END | disposition home or self-care (01) ==
LOC: RADUSWWP 13:50
PROVIDERS: ATTEND Thoracic Surgery (Cardiothoracic Vascular Surgery)
DX: I87.333 Chronic venous hypertension (idiopathic) with ulcer and inflammation of bilateral lower extremity (principal); L97.212 Non-pressure chronic ulcer of right calf with fat layer exposed; L97.222 Non-pressure chronic ulcer of left calf with fat layer exposed
CPT/HCPCS: 93922; 93970

== ENCOUNTER 2021-11-11 23:43 | Inpatient (IN) | payer MEDICARE, OTHER ==
[2021-11-11] MEDS ORDERED: SODIUM CHLORIDE 0.9% 1,000 ML IV STA ×2 (23:58)
[2021-11-11] MEDS ORDERED: KETOROLAC 15 MG/ML 1 ML VIAL IVP STA (23:58)
--- NOTE | 2021-11-11 23:59 | ED ---
Weakness HPI - General Chief complaint: Upper Respiratory Infection Stated complaint: Covid Symptoms Time Seen by Provider: 11/11/21 23:57 Source: patient, EMS, RN notes reviewed, old records reviewed Mode of arrival: EMS Limitations: no limitations - History of Present Illness Initial comments: This is an 81-year-old female to the emergency room today. Patient presents today for evaluation of weakness sore throat not feeling well. Cough and shortness of breath. Possible fever. Patient has no known significant sick contacts she does suffer from A. fib high blood pressure. She is significantly debilitated. Patient herself is without real significant complaint no complaint of shortness of breath currently. Patient history is obtained from family who is also at bedside. MD Complaint: generalized weakness, lack of energy, difficulty walking -: days(s) Location: generalized Severity: moderate Severity scale (1-10): 5 Quality: numbness Consistency: constant Improves with: none Worsens with: none Context: recent illness Associated Symptoms: confusion, loss of appetite, nausea/vomiting, shortness of breath - Related Data Home Medications Medication Instructions Recorded Confirmed Aspirin 81 mg PO HS 10/07/14 07/22/20 Baclofen [Lioresal] 10 mg PO Q6H 10/07/14 07/22/20 Butalb/Acetaminophen/Caffeine 1 - 2 tab PO TID PRN 10/07/14 07/22/20 [Fioricet 50-325-40] Sertraline [Zoloft] 50 mg PO DAILY 10/07/14 07/22/20 Carbidopa-Levodopa 25-100 mg 1 tab PO 5XD 07/22/20 07/22/20 [Sinemet 25-100 mg] Flecainide [Tambocor] 50 mg PO BID@1200,2330 07/22/20 07/22/20 Methyl Salicylate/Menthol 1 patch TOPICAL BID 07/22/20 07/22/20 [Salonpas Patch] Previous Rx's Medication Instructions Recorded Butalb/APAP/Caff 50-325-40Mg 1 each PO TID PRN #6 tab 07/24/20 [Fioricet 50-325-40] Metoprolol Tartrate [Lopressor] 50 mg PO TID tab 07/24/20 Cefuroxime Axetil [Ceftin] 500 mg PO BID 10 Days #20 tab 07/25/20 Cholestyramine (with Sugar) 4 gm PO DAILY@1000 PRN 2 Days #4 07/25/20 [Questran Packet] packet Potassium Chloride ER [K-Dur 10] 10 meq PO DAILY 5 Days #5 07/25/20 tab.er.prt Rivaroxaban [Xarelto] 15 mg PO DAILY tab 07/25/20 metroNIDAZOLE [Flagyl] 500 mg PO Q8HR 8 Days #24 tab 07/25/20 Allergies Allergy/AdvReac Type Severity Reaction Status Date / Time No Known Allergies Allergy Verified 07/22/20 08:38 Review of Systems ROS Statement: Those systems with pertinent positive or pertinent negative responses have been documented in the HPI. ROS Other: All systems not noted in ROS Statement are negative. Past Medical History Past Medical History: Atrial Fibrillation, Eye Disorder, GERD/Reflux, Hypertension, Mitral Valve Prolapse (MVP) Additional Past Medical History / Comment(s): HYPOGLYCEMIC History of Any Multi-Drug Resistant Organisms: None Reported Past Surgical History: Back Surgery, Cholecystectomy Additional Past Surgical History / Comment(s): RT CATARACT REMOVED. COLONOSCOPY. HEMORRHOIDECTOMY Past Anesthesia/Blood Transfusion Reactions: No Reported Reaction Past Psychological History: Anxiety, Depression Smoking Status: Former smoker Past Alcohol Use History: None Reported Past Drug Use History: None Reported General Exam Limitations: no limitations General appearance: alert, in no apparent distress Head exam: Present: atraumatic, normocephalic, normal inspection Eye exam: Present: normal appearance, PERRL, EOMI. Absent: scleral icterus, c onjunctival injection, periorbital swelling ENT exam: Present: normal exam, mucous membranes dry Neck exam: Present: normal inspection. Absent: tenderness, meningismus, lymphadenopathy Respiratory exam: Present: normal lung sounds bilaterally. Absent: respiratory distress, wheezes, rales, rhonchi, stridor Cardiovascular Exam: Present: normal rhythm, tachycardia, normal heart sounds. Absent: systolic murmur, diastolic murmur, rubs, gallop, clicks GI/Abdominal exam: Present: soft, normal bowel sounds. Absent: distended, tenderness, guarding, rebound, rigid Extremities exam: Present: normal inspection, full ROM, normal capillary refill. Absent: tenderness, pedal edema, joint swelling, calf tenderness Back exam: Present: normal inspection Neurological exam: Present: alert, oriented X3, CN II-XII intact Psychiatric exam: Present: normal affect, normal mood Skin exam: Present: warm, dry, intact, normal color. Absent: rash Course Vital Signs 11/11/21 23:57 Temperature 99.3 F Pulse Rate 103 H Respiratory 18 Rate Blood Pressure 94/64 O2 Sat by Pulse 90 L Oximetry - Reevaluation(s) Reevaluation #1: 11/12/21 02:49 Medical record is reviewed Reevaluation #2: 11/12/21 02:49 Patient family informed of results and questions answered Reevaluation #3: 11/12/21 02:49 Patient is improved here in the ER with supplemental O2 and fever control - Consultations Consultation #1: Spoke with Dr. Banda agrees to admit this patient EKG Findings - EKG Comments: EKG Findings:: EKG is A. fib 95 QRS 86 QTc 475 Medical Decision Making - Medical Decision Making 81 female DF for evaluation of severe weakness shortness of breath with positive for coronavirus. Coronavirus pneumonia on x-ray. Patient be admitted for supportive care - Lab Data Result diagrams: 11/12/21 00:36 11/12/21 00:36 Lab Results 11/12/21 11/12/21 11/12/21 Range/Units 00:36 00:36 00:36 WBC 5.3 (3.8-10.6) k/uL RBC 3.84 (3.80-5.40) m/uL Hgb 11.5 (11.4-16.0) gm/dL Hct 34.2 (34.0-46.0) % MCV 89.0 (80.0-100.0) fL MCH 30.0 (25.0-35.0) pg MCHC 33.7 (31.0-37.0) g/dL RDW 13.6 (11.5-15.5) % Plt Count 113 L (150-450) k/uL MPV 9.0 Neutrophils % 85 % Lymphocytes % 6 % Monocytes % 6 % Eosinophils % 1 % Basophils % 0 % Neutrophils # 4.5 (1.3-7.7) k/uL Lymphocytes # 0.3 L (1.0-4.8) k/uL Monocytes # 0.3 (0-1.0) k/uL Eosinophils # 0.1 (0-0.7) k/uL Basophils # 0.0 (0-0.2) k/uL PT 11.7 (9.0-12.0) sec INR 1.1 (<1.2) APTT 27.3 (22.0-30.0) sec Sodium 135 L (137-145) mmol/L Potassium 3.2 L (3.5-5.1) mmol/L Chloride 102 (98-107) mmol/L Carbon Dioxide 25 (22-30) mmol/L Anion Gap 8 mmol/L BUN 23 H (7-17) mg/dL Creatinine 0.61 (0.52-1.04) mg/dL Est GFR (CKD-EPI)AfAm >90 (>60 ml/min/1.73 sqM) Est GFR (CKD-EPI)NonAf 85 (>60 ml/min/1.73 sqM) Glucose 125 H (74-99) mg/dL Plasma Lactic Acid [place] (0.7-2.0) mmol/L Calcium 8.1 L (8.4-10.2) mg/dL Magnesium 1.8 (1.6-2.3) mg/dL Total Bilirubin 0.6 (0.2-1.3) mg/dL AST 71 H (14-36) U/L ALT 8 (4-34) U/L Alkaline Phosphatase 137 H (38-126) U/L Lactate Dehydrogenase 412 (313-618) U/L C-Reactive Protein 7.9 H (<1.0) mg/dL Total Protein 6.1 L (6.3-8.2) g/dL Albumin 3.4 L (3.5-5.0) g/dL Coronavirus (PCR) (Not Detectd) 11/12/21 11/12/21 Range/Units 00:36 00:36 WBC (3.8-10.6) k/uL RBC (3.80-5.40) m/uL Hgb (11.4-16.0) gm/dL Hct (34.0-46.0) % MCV (80.0-100.0) fL MCH (25.0-35.0) pg MCHC (31.0-37.0) g/dL RDW (11.5-15.5) % Plt Count (150-450) k/uL MPV Neutrophils % % Lymphocytes % % Monocytes % % Eosinophils % % Basophils % % Neutrophils # (1.3-7.7) k/uL Lymphocytes # (1.0-4.8) k/uL Monocytes # (0-1.0) k/uL Eosinophils # (0-0.7) k/uL Basophils # (0-0.2) k/uL PT (9.0-12.0) sec INR (<1.2) APTT (22.0-30.0) sec Sodium (137-145) mmol/L Potassium (3.5-5.1) mmol/L Chloride (98-107) mmol/L Carbon Dioxide (22-30) mmol/L Anion Gap mmol/L BUN (7-17) mg/dL Creatinine (0.52-1.04) mg/dL Est GFR (CKD-EPI)AfAm (>60 ml/min/1.73 sqM) Est GFR (CKD-EPI)NonAf (>60 ml/min/1.73 sqM) Glucose (74-99) mg/dL Plasma Lactic Acid [place] 0.8 (0.7-2.0) mmol/L Calcium (8.4-10.2) mg/dL Magnesium (1.6-2.3) mg/dL Total Bilirubin (0.2-1.3) mg/dL AST (14-36) U/L ALT (4-34) U/L Alkaline Phosphatase (38-126) U/L Lactate Dehydrogenase (313-618) U/L C-Reactive Protein (<1.0) mg/dL Total Protein (6.3-8.2) g/dL Albumin (3.5-5.0) g/dL Coronavirus (PCR) Detected A (Not Detectd) - Radiology Data Radiology results: report reviewed (Chest x-rays positive for coronavirus), image reviewed Disposition Clinical Impression: Dehydration, Weakness, Fever, Coronavirus infection, Pneumonia due to COVID-19 virus, Hypoxia Disposition: ADMITTED IP TO THIS HOSP Condition: Fair Is patient prescribed a controlled substance at d/c from ED?: No
--- NOTE | 2021-11-12 00:20 | XR ---
EXAMINATION TYPE: XR chest 1V portable DATE OF EXAM: 11/12/2021 COMPARISON: 07/22/2020 HISTORY: Pneumonia TECHNIQUE: FINDINGS: Heart is enlarged. There is mild increased density in the left lower lobe behind the heart. There is no heart failure. There is multilevel thoracolumbar posterior fusion surgery. Thoracic aort a is atheromatous. There is slight blunting left costophrenic angle. The right lung is clear. IMPRESSION: There is mild infiltrate and pleural reaction left lung base which is increased compared to last exam. No heart failure seen.
[2021-11-12 00:43] LABS: Basophils % (A) 0 %; Eosinophils # (A) 0.1 k/uL (0-0.7); Eosinophils % (A) 1 %; HCT 34.2 % (34.0-46.0); HGB 11.5 gm/dL (11.4-16.0); Lymphocytes # (A) 0.3 k/uL (1.0-4.8); Lymphocytes % (A) 6 %; MCHC 33.7 g/dL (31.0-37.0); Monocytes # (A) 0.3 k/uL (0-1.0); Monocytes % (A) 6 %; Neutrophils # (A) 4.5 k/uL (1.3-7.7); Neutrophils % (A) 85 %; Platelet Count 113 k/uL (150-450); RBC 3.84 m/uL (3.80-5.40); RDW 13.6 % (11.5-15.5); WBC 5.3 k/uL (3.8-10.6)
[2021-11-12 00:57] LABS: ALT 8 U/L (4-34); AST 71 U/L (14-36); African American GFR (CKD) >90 (>60 ml/min/1.73 sqM); Albumin 3.4 g/dL (3.5-5.0); Alkaline Phosphatase 137 U/L (38-126); Anion Gap 8 mmol/L; Blood Urea Nitrogen 23 mg/dL (7-17); C Reactive Protein 7.9 mg/dL (<1.0); Calcium 8.1 mg/dL (8.4-10.2); Carbon Dioxide 25 mmol/L (22-30); Chloride 102 mmol/L (98-107); Glucose 125 mg/dL (74-99); LDH 412 U/L (313-618); Magnesium 1.8 mg/dL (1.6-2.3); Non-African American GFR(CKD) 85 (>60 ml/min/1.73 sqM); Potassium 3.2 mmol/L (3.5-5.1); Sodium 135 mmol/L (137-145); Total Bilirubin 0.6 mg/dL (0.2-1.3); Total Protein 6.1 g/dL (6.3-8.2)
[2021-11-12 01:06] LABS: INR 1.1 (<1.2); Partial Thromboplastin Time 27.3 sec (22.0-30.0); Prothrombin Time 11.7 sec (9.0-12.0)
[2021-11-12] MEDS ORDERED: POTASSIUM CHLORIDE 20 MEQ in WATER FOR INJECTION 1 100ML.BAG IVPB STA (01:22)
[2021-11-12] MEDS ORDERED: SODIUM CHLORIDE 0.9% 500 ML 500 ML IV STA (01:22)
[2021-11-12] MEDS ORDERED: POTASSIUM BICARB-CITRIC ACID 25 MEQ TABLET.EFF PO ONE (01:22)
[2021-11-12] MEDS ORDERED: SODIUM CHLORIDE 0.9% 1,000 ML IV STA (01:22)
[2021-11-12] MEDS ORDERED: NALOXONE 0.4 MG/ML 1 ML VIAL IV PRN (01:28)
[2021-11-12] MEDS ORDERED: ONDANSETRON 4 MG/2 ML VIAL IVP PRN (01:34)
[2021-11-12] MEDS ORDERED: MORPHINE SULFATE 4 MG/ML SYRINGE IV PRN (01:34)
[2021-11-12] MEDS ORDERED: DEXAMETHASONE SOD PHOSPHATE 10 MG/ML 1 ML VIAL IVP STA (01:36)
[2021-11-12] MEDS ORDERED: ACETAMINOPHEN TAB 325 MG TAB PO PRN (03:24)
[2021-11-12] MEDS ORDERED: ACETAMINOPHEN TAB 325 MG TAB PO STA (03:24)
[2021-11-12] MEDS: SODIUM CHLORIDE 0.9% 1,000 ML IV SCH ×2 (04:02→20:01)
[2021-11-12] MEDS ORDERED: DEXAMETHASONE SOD PHOSPHATE 10 MG/ML 1 ML VIAL IVP SCH (09:00)
--- NOTE | 2021-11-12 12:00 | P.CNPUL ---
History of Present Illness Consult date: 11/12/21 Reason for consult: dyspnea History of present illness: 81-year-old female patient came into the ED because of symptoms of URI and cold with related symptoms. The patient also had weakness, sore throat, not feeling good, body aches, cough and shortness of breath. She is not known to have any sick contacts. In the ED, the patient was found to have a temperature of 99.3, pulse is was low as 90%. Her chest x-ray showed cardiomegaly. There was a summation patient's including rods stabilizing the lumbar spine. There is some increase in dyspnea markings bilaterally. No consolidation or airspace disease. White cell count is at 5.3 with a hemoglobin of 11.5 and a platelet count of 113. Coagulation profile was within normal limits. Creatinine is at 23 with a creatinine of 0.6. LFTs showed an AST of 71, ALT of 8, alkaline phosphatase 137, normal electrolytes, creatinine of 0.6 and a CRP level was at 6.1 and a Coban 19th testing came back positive by PCR. The patient is currently on oxygen at 2 L per minute nasal cannula. She is vaccinated for Covid 19 x2 without booster . She had limited on long-term and to coagulation with Xarelto 15 mg by mouth daily regarding history of chronic atrial fibrillation. Her current EKG is showing a A. fib rhythm, rate is controlled for now. Review of Systems Constitutional: Reports fatigue, Reports lethargy, Reports poor appetite, Reports weakness Eyes: denies as per HPI, denies blurred vision, denies bulging eye, denies decreased vision, denies diplopia, denies discharge, denies dry eye, denies irritation, denies itching, denies pain, denies photophobia, denies loss of peripheral vision, denies loss of vision, denies tunnel vision/blind spots Ears: deny: decreased hearing, ear discharge, earache, tinnitus Ears, nose, mouth and throat: Reports as per HPI Breasts: absent: as per HPI, change in shape, gynecomastia, masses, nipple disc harge, pain, skin changes, swelling Cardiovascular: Reports decreased exercise tolerance, Reports dyspnea on exertion Respiratory: Reports cough, Reports dyspnea Gastrointestinal: Reports as per HPI Genitourinary: Reports as per HPI Menstruation: Reports as per HPI Musculoskeletal: Reports as per HPI Musculoskeletal: absent: ankle pain, ankle stiffness, ankle swelling, as per HPI, elbow pain, elbow stiffness, elbow swelling, foot pain, foot stiffness, foot swelling, hand pain, hand stiffness, hand swelling, hip pain, hip stiffness, hip swelling, knee pain, knee stiffness, knee swelling, shoulder pain, shoulder stiffness, shoulder swelling, wrist pain, wrist stiffness, wrist swelling Integumentary: Reports as per HPI Neurological: Reports as per HPI, Reports weakness Endocrine: Reports as per HPI, Reports fatigue Hematologic/Lymphatic: Reports as per HPI Allergic/Immunologic: Reports as per HPI Past Medical History Past Medical History: Atrial Fibrillation, Eye Disorder, GERD/Reflux, Hypertension, Mitral Valve Prolapse (MVP) History of Any Multi-Drug Resistant Organisms: None Reported Past Surgical History: Back Surgery, Cholecystectomy Additional Past Surgical History / Comment(s): RT CATARACT REMOVED. COLONOSCOPY. HEMORRHOIDECTOMY Past Anesthesia/Blood Transfusion Reactions: No Reported Reaction Past Psychological History: Anxiety, Depression Smoking Status: Former smoker Past Alcohol Use History: None Reported Past Drug Use History: None Reported Medications and Allergies Home Medications Medication Instructions Recorded Confirmed Type Aspirin 81 mg PO HS 10/07/14 11/12/21 History Baclofen [Lioresal] 10 mg PO Q6H 10/07/14 11/12/21 History Butalb/Acetaminophen/Caffeine 1 - 2 tab PO QID PRN MDD 6 tabs 10/07/14 11/12/21 History [Fioricet 50-325-40] Sertraline [Zoloft] 50 mg PO DAILY 10/07/14 11/12/21 History Carbidopa-Levodopa 25-100 mg 1 tab PO DIRECTED 07/22/20 11/12/21 History [Sinemet 25-100 mg] Potassium Chloride ER [K-Dur 10] 10 meq PO DAILY 5 Days #5 07/25/20 11/12/21 Rx tab.er.prt Rivaroxaban [Xarelto] 15 mg PO DAILY tab 07/25/20 11/12/21 Rx Furosemide [Lasix] 20 mg PO DAILY 11/12/21 11/12/21 History Metoprolol Tartrate [Lopressor] 50 mg PO BID-W/MEALS 11/12/21 11/12/21 History Allergies Allergy/AdvReac Type Severity Reaction Status Date / Time No Known Allergies Allergy Verified 07/22/20 08:38 Physical Exam Vitals: Vital Signs Temp Pulse Pulse Resp BP BP Pulse Ox 11/12/21 07:23 73 18 92/48 97 11/12/21 07:00 97.5 F L 69 12 96/64 98 11/12/21 05:39 77 18 95/72 93 L 11/12/21 04:09 85 18 99/64 98 11/12/21 02:57 72 18 94/59 98 11/12/21 01:57 79 18 91/50 98 11/11/21 23:57 99.3 F 103 H 18 94/64 90 L Intake and Output 11/11/21 11/12/21 11/12/21 22:59 06:59 14:59 Other: Voiding Method Toilet # Voids 1 # Bowel Movements 1 Weight 51.71 kg General appearance: alert, in no apparent distress the patient is currently on room air oxygen. Head exam: Present: atraumatic, normocephalic, normal inspection Eye exam: Present: normal appearance, PERRL, EOMI. Absent: scleral icterus, conjunctival injection, periorbital swelling ENT exam: Present: normal exam, mucous membranes dry Neck exam: Present: normal inspection. Absent: tenderness, meningismus, lymphadenopathy Respiratory exam: Present: normal lung sounds bilaterally. Absent: respiratory distress, wheezes, rales, rhonchi, stridor, and the patient has significant kyphoscoliosis of the cervical and thoracic spine. Her neck is quite flexed at this point in time. Cardiovascular Exam: Present: normal rhythm, tachycardia, normal heart sounds. Absent: systolic murmur, diastolic murmur, rubs, gallop, clicks GI/Abdominal exam: Present: soft, normal bowel sounds. Absent: distended, tenderness, guarding, rebound, rigid Extremities exam: Present: normal inspection, full ROM, normal capillary refill. Absent: tenderness, pedal edema, joint swelling, calf tenderness Back exam: Present: normal inspection Neurological exam: Present: alert, oriented X3, CN II-XII intact Psychiatric exam: Present: normal affect, normal mood Skin exam: Present: warm, dry, intact, normal color. Absent: rash Results - Laboratory Findings CBC and BMP: 11/12/21 00:36 11/12/21 00:36 PT/INR, D-dimer PT 11.7 sec (9.0-12.0) 11/12/21 00:36 INR 1.1 (<1.2) 11/12/21 00:36 Abnormal lab findings: Abnormal Labs 11/12/21 11/12/21 11/12/21 00:36 00:36 00:36 Plt Count 113 L Lymphocytes # 0.3 L Sodium 135 L Potassium 3.2 L BUN 23 H Glucose 125 H Calcium 8.1 L AST 71 H Alkaline Phosphatase 137 H C-Reactive Protein 7.9 H Total Protein 6.1 L Albumin 3.4 L Coronavirus (PCR) Detected A - Diagnostic Findings Chest x-ray: image reviewed Assessment and Plan Plan: 1 acute COVID 19 infection in 7-year-old female patient who has widely received a vaccination for COVID 19 and the patient has received the message [employer] vaccine without a booster. The patient is presenting with constitutional symptoms along with some cough and shortness of breath related to the infection. Chest x-ray does not show clear signs of an infection/pneumonia. The patient's Room Air Oxygen. Her Pulse Ox Is Maintained above 90%. The Exact timing for her symptom onset cannot be clearly established. The patient has been sick probably for less than a week. 2 chronic atrial fibrillation method on long-term anticoagulation with Xarelto 3 cervical and thoracic kyphoscoliosis 4 thrombocytopenia, a chronic problem for this patient Plan Monitor the oxygenation and the patient is currently on room in oxygen. She has slightly hypoxic and her pulse ox in the low 90s. Agree for a total of 10 day course of Decadron 6 mg by mouth daily Supplemented with multivitamins including vitamin C and the zinc Continue anticoagulation with Xarelto Check LDH and pro-calcitonin and the dimers This is a simple case of COVID 19 infection. We'll leave the management of the medicine. The patient is currently on room air oxygen. She carries a good prognosis based on the fact that she is vaccinated. Contact us back if there is any worsening in her condition. 5
[2021-11-12] MEDS: FUROSEMIDE 20 MG TAB PO SCH (12:25)
[2021-11-12] MEDS: SERTRALINE 50 MG TAB PO SCH (12:25)
[2021-11-12] MEDS: POTASSIUM CHLORIDE ER 10 MEQ TAB.ER.PRT PO SCH (12:25)
[2021-11-12] MEDS: RIVAROXABAN 15 MG TAB PO SCH (12:25)
[2021-11-12] MEDS: CARBIDOPA-LEVODOPA 25-100 MG 1 EACH TAB PO SCH ×4 (12:26→23:01)
[2021-11-12] MEDS: BACLOFEN 10 MG TAB PO SCH ×3 (12:28→23:00)
[2021-11-12] MEDS: METOPROLOL TARTRATE 50 MG TAB PO SCH ×2 (12:28→17:15)
[2021-11-12] MEDS: BUTALB/APAP/CAFF 50-325-40MG TAB PO PRN (15:31)
[2021-11-12] MEDS ORDERED: CALCIUM CARBONATE 500 MG CHEWABLE PO PRN (20:32)
[2021-11-12] MEDS ORDERED: traMADol 50 MG TAB PO PRN (20:32)
[2021-11-12] MEDS ORDERED: MELATONIN 3 MG TABLET PO PRN (20:32)
[2021-11-12] MEDS ORDERED: LACTULOSE 20 GM/30 ML CUP PO PRN (20:32)
[2021-11-12] MEDS ORDERED: ALPRAZolam 0.25 MG TAB PO PRN (20:32)
--- NOTE | 2021-11-12 20:36 | P.HPIM ---
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 Chronic stable medical conditions include atrial fibrillation, GERD, hypertension, mitral valve prolapse, chronic low back pain with any dizziness, scoliosis, right hand tremors, anxiety depression. Does use a walker to ambulate. Per the EMS/ER report patient was not able to ambulate without assistance which is not normal. Decrease eating and drinking at least the last 23 days. Patient also has a sore throat low-grade fever for at least 2 days. Cough. No sputum. Pulse ox initially noted was 89%. Tired rundown. Review of systems: GEN.: Fever tired decreased appetite EYES: None HEENT: None NECK: None RESPIRATORY: As above CARDIOVASCULAR: None GASTROINTESTINAL: None GENITOURINARY: None MUSCULOSKELETAL: Chronic low back pain LYMPHATICS: None HEMATOLOGICAL: None PSYCHIATRY: None NEUROLOGICAL: Does use a walker, chronic right hand tremor Past medical history to include: Atrial fibrillation, GERD, hypertension, mitral valve prolapse, colitis, lower back herniated disc, scoliosis, right hand tremor, pain clinic procedures, anxiety depression Social history: Patient lives with her daughter. Does use a walker. Patient smoked for 20 years stopped in 1985. No alcohol. Family history: Diabetes, alcohol Physical examination: VITAL SIGNS: 99.3, 103, 18, 94/64, 90% on room air 89% reported at home by EMS GENERAL: BMI 19.6, laying in bed, awake, tired neck tilted to left. EYES: Pupils equal. Conjunctiva normal. HEENT: External appearance of nose and ears normal, oral cavity dry mucous membranes. NECK: JVD not raised; masses not palpable. HEART: First and second heart sounds are normal; no edema. LUNGS: Respiratory rate increased; decreased breath sounds, occasional crackle. ABDOMEN: Soft, nontender, liver spleen not palpable, no masses palpable. PSYCH: Alert and oriented x3; mood and affect normal. MUSCULOSKELETAL:No Clubbing/cyanosis;muscles-grossly intact. Neck tilted to left NEUROLOGICAL: Cranial nerves grossly intact; no facial asymmetry, power and sensation grossly intact. LYMPHATICS: No lymph nodes palpable in the axilla and neck INVESTIGATIONS, reviewed in the clinical context: White count 5.3 hemoglobin 11.5 platelets 113 sodium 135 potassium 3.2. 23 creatinine 0.61 albumin 3.4 Coronavirus [PCR]: Not detected EKG tracing personally reviewed by me-atrial flutter/fibrillation. Nonspecific ST segment changes. Rate 95 Chest x-ray film personally reviewed by me-possible infiltrate. Some cardiomegaly. Assessment and plan: -Acute COVID 19 pneumonitis. Vitamin C, vitamin D, zinc. On xarelto -Acute hypoxic respiratory failure will pulse ox 89% at home and 90% on room air upon presentation. Dexamethasone 6 mg daily. Supplement oxygen to keep pulse ox above 92% -Persistent atrial flutter fibrillation, controlled Continue xarelto. Lopressor 50 mg 3 times a day -GERD Pepcid 20 mg twice a day -Chronic gait dysfunction, uses a walker Activity as tolerated -Anxiety/depression Zoloft 50 mg a day -Chronic muscle spasms Baclofen 10 mg every 6 Continue xarelto. Dexamethasone. 2 L nasal cannula. Home medications resumed. Care was discussed with the patient. Questions answered. Past Medical History Past Medical History: Atrial Fibrillation, Eye Disorder, GERD/Reflux, Hypertension, Mitral Valve Prolapse (MVP) Additional Past Medical History / Comment(s): Mitral valve prolapse, hypoglycemia, colitis/gastroenteritis with sepsis, migrained, back pain, herniated disc, scoliosis, R hand tremors, past L foot ulcer. History of Any Multi-Drug Resistant Organisms: None Reported Past Surgical History: Back Surgery, Cholecystectomy, Heart Catheterization Additional Past Surgical History / Comment(s): Back has 2 rods, bilateral cataract removals, colonoscopy, hemorrhoidectomy, EGD, pain clinic procedures. Past Anesthesia/Blood Transfusion Reactions: No Reported Reaction Smoking Status: Former smoker - Past Family History Father Additional Family Medical History / Comment(s): ETOH, never went to the doctors Mother Family Medical History: Diabetes Mellitus Medications and Allergies Home Medications Medication Instructions Recorded Confirmed Type Aspirin 81 mg PO HS 10/07/14 11/12/21 History Baclofen [Lioresal] 10 mg PO Q6H 10/07/14 11/12/21 History Butalb/Acetaminophen/Caffeine 1 - 2 tab PO QID PRN MDD 6 tabs 10/07/14 11/12/21 History [Fioricet 50-325-40] Sertraline [Zoloft] 50 mg PO DAILY 10/07/14 11/12/21 History Carbidopa-Levodopa 25-100 mg 1 tab PO DIRECTED 07/22/20 11/12/21 History [Sinemet 25-100 mg] Potassium Chloride ER [K-Dur 10] 10 meq PO DAILY 5 Days #5 07/25/20 11/12/21 Rx tab.er.prt Rivaroxaban [Xarelto] 15 mg PO DAILY tab 07/25/20 11/12/21 Rx Furosemide [Lasix] 20 mg PO DAILY 11/12/21 11/12/21 History Metoprolol Tartrate [Lopressor] 50 mg PO BID-W/MEALS 11/12/21 11/12/21 History Allergies Allergy/AdvReac Type Severity Reaction Status Date / Time No Known Allergies Allergy Verified 07/22/20 08:38 Physical Exam Vitals: Vital Signs Temp Pulse Pulse Resp BP BP Pulse Ox 11/12/21 19:52 98.3 F 93 16 123/86 94 L 11/12/21 12:17 98.4 F 89 18 120/77 93 L 11/12/21 07:23 73 18 92/48 97 11/12/21 07:00 97.5 F L 69 12 96/64 98 11/12/21 05:39 77 18 95/72 93 L 11/12/21 04:09 85 18 99/64 98 11/12/21 02:57 72 18 94/59 98 11/12/21 01:57 79 18 91/50 98 11/11/21 23:57 99.3 F 103 H 18 94/64 90 L Intake and Output 11/12/21 11/12/21 11/12/21 06:59 14:59 22:59 Other: Voiding Method Toilet # Voids 1 1 1 # Bowel Movements 1 1 Weight 51.71 kg 51.71 kg Results CBC & Chem 7: 11/12/21 00:36 11/12/21 00:36 Labs: Abnormal Lab Results - Last 24 Hours (Table) 11/12/21 11/12/21 11/12/21 Range/Units 00:36 00:36 00:36 Plt Count 113 L (150-450) k/uL Lymphocytes # 0.3 L (1.0-4.8) k/uL Sodium 135 L (137-145) mmol/L Potassium 3.2 L (3.5-5.1) mmol/L BUN 23 H (7-17) mg/dL Glucose 125 H (74-99) mg/dL Calcium 8.1 L (8.4-10.2) mg/dL AST 71 H (14-36) U/L Alkaline Phosphatase 137 H (38-126) U/L C-Reactive Protein 7.9 H (<1.0) mg/dL Total Protein 6.1 L (6.3-8.2) g/dL Albumin 3.4 L (3.5-5.0) g/dL Coronavirus (PCR) Detected A (Not Detectd) Thrombosis Risk Factor Assmnt - Choose All That Apply Any of the Below Risk Factors Present?: Yes Each Factor Represents 1 point: Serious lung disease incl. pneumonia (< 1month) Other Risk Factors: Yes Each Risk Factor Represents 3 Points: Age 75 years or older Other congenital or acquired thrombophilia - If yes, enter type in comment: No Thrombosis Risk Factor Assessment Total Risk Factor Score: 4 Thrombosis Risk Factor Assessment Level: Moderate Risk
[2021-11-12] MEDS: ASCORBIC ACID 500 MG TAB PO SCH (21:46)
[2021-11-12] MEDS: ASPIRIN 81 MG PO SCH (21:47)
[2021-11-12] MEDS: FAMOTIDINE 20 MG TAB PO SCH (21:47)
[2021-11-12] MEDS: ZINC SULFATE 220 MG CAP PO SCH (21:50)
[2021-11-12] MEDS: CHOLECALCIFEROL 125 MCG (5000 IU) TABLET PO SCH (21:50)
[2021-11-13] MEDS: CARBIDOPA-LEVODOPA 25-100 MG 1 EACH TAB PO SCH ×7 (04:43→23:10)
[2021-11-13] MEDS: BUTALB/APAP/CAFF 50-325-40MG TAB PO PRN ×3 (04:43→23:24)
[2021-11-13] MEDS: BACLOFEN 10 MG TAB PO SCH ×4 (06:01→19:50)
[2021-11-13] MEDS: SODIUM CHLORIDE 0.9% 1,000 ML IV SCH ×2 (06:02→16:28)
[2021-11-13] MEDS: CHOLECALCIFEROL 125 MCG (5000 IU) TABLET PO SCH (08:25)
[2021-11-13] MEDS: POTASSIUM CHLORIDE ER 10 MEQ TAB.ER.PRT PO SCH (08:25)
[2021-11-13] MEDS: dexAMETHasone 2 MG TAB PO SCH (08:25)
[2021-11-13] MEDS: METOPROLOL TARTRATE 50 MG TAB PO SCH ×2 (08:25→17:02)
[2021-11-13] MEDS: ZINC SULFATE 220 MG CAP PO SCH (08:25)
[2021-11-13] MEDS: FUROSEMIDE 20 MG TAB PO SCH (08:25)
[2021-11-13] MEDS: RIVAROXABAN 15 MG TAB PO SCH (08:25)
[2021-11-13] MEDS: FAMOTIDINE 20 MG TAB PO SCH ×2 (08:25→19:50)
[2021-11-13] MEDS: SERTRALINE 50 MG TAB PO SCH (08:25)
[2021-11-13 08:52] LABS: Basophils % (A) 0 %; Eosinophils % (A) 0 %; HCT 36.7 % (34.0-46.0); HGB 11.7 gm/dL (11.4-16.0); Lymphocytes # (A) 0.7 k/uL (1.0-4.8); Lymphocytes % (A) 12 %; MCH 29.3 pg (25.0-35.0); MCHC 31.8 g/dL (31.0-37.0); MCV 91.9 fL (80.0-100.0); Mean Platelet Volume 9.2; Monocytes # (A) 0.4 k/uL (0-1.0); Monocytes % (A) 7 %; Neutrophils # (A) 4.7 k/uL (1.3-7.7); Neutrophils % (A) 81 %; Platelet Count 112 k/uL (150-450); RDW 13.7 % (11.5-15.5); WBC 5.9 k/uL (3.8-10.6)
[2021-11-13 08:57] LABS: ALT 12 U/L (4-34); AST 60 U/L (14-36); African American GFR (CKD) >90 (>60 ml/min/1.73 sqM); Albumin 3.3 g/dL (3.5-5.0); Alkaline Phosphatase 149 U/L (38-126); Anion Gap 7 mmol/L; Blood Urea Nitrogen 18 mg/dL (7-17); C Reactive Protein 6.5 mg/dL (<1.0); Calcium 8.3 mg/dL (8.4-10.2); Carbon Dioxide 25 mmol/L (22-30); Chloride 107 mmol/L (98-107); Glucose 105 mg/dL (74-99); Magnesium 1.9 mg/dL (1.6-2.3); Non-African American GFR(CKD) >90 (>60 ml/min/1.73 sqM); Potassium 3.5 mmol/L (3.5-5.1); Sodium 139 mmol/L (137-145); Total Bilirubin 0.5 mg/dL (0.2-1.3); Total Protein 6.2 g/dL (6.3-8.2)
[2021-11-13] MEDS: ASCORBIC ACID 500 MG TAB PO SCH ×2 (12:08→19:50)
--- NOTE | 2021-11-13 12:12 | P.PN ---
Subjective Progress Note Date: 11/13/21 81-year-old female patient came into the ED because of symptoms of URI and cold with related symptoms. The patient also had weakness, sore throat, not feeling good, body aches, cough and shortness of breath. She is not known to have any sick contacts. In the ED, the patient was found to have a temperature of 99.3, pulse is was low as 90%. Her chest x-ray showed cardiomegaly. There was a summation patient's including rods stabilizing the lumbar spine. There is some increase in dyspnea markings bilaterally. No consolidation or airspace disease. White cell count is at 5.3 with a hemoglobin of 11.5 and a platelet count of 113. Coagulation profile was within normal limits. Creatinine is at 23 with a creatinine of 0.6. LFTs showed an AST of 71, ALT of 8, alkaline phosphatase 137, normal electrolytes, creatinine of 0.6 and a CRP level was at 6.1 and a Coban 19th testing came back positive by PCR. The patient is currently on oxygen at 2 L per minute nasal cannula. She is vaccinated for Covid 19 x2 without booster . She had limited on long-term and to coagulation with Xarelto 15 mg by mouth daily regarding history of chronic atrial fibrillation. Her current EKG is showing a A. fib rhythm, rate is controlled for now. The patient is seen today in 11/13/2021 in follow-up on the regular medical floor. She is currently resting comfortably in bed. Awake and alert in no acute distress. Maintaining good O2 saturations in the 90s on room air. No worsening shortness of breath, cough or congestion. She remains afebrile. Hemodynamically stable. White count 5.9. Hemoglobin 11.7. Platelets 112,000. Lymphocytes 0.7. D-dimer 0.63. Sodium 139. Potassium 3.5. Creatinine 0.48. AST 60. ALT 12. Pro-calcitonin 0.12. She is continued on Decadron, Xarelto, vitamin supplements. Objective - Vital Signs Vital signs: Vital Signs Temp 98.5 F 11/13/21 07:00 Pulse 86 11/13/21 07:00 Resp 16 11/13/21 07:00 BP 144/85 11/13/21 07:00 Pulse Ox 96 11/13/21 08:29 Intake & Output 11/12/21 11/13/21 11/13/21 18:59 06:59 18:59 Intake Total 662 Balance 662 Weight 51.71 kg Intake: Intake, IV Titration 12 Amount Sodium Chloride 0.9% 1, 12 000 ml @ 75 mls/hr IV . [id number] [facility] Rx#:[id number] Oral 650 Other: Voiding Method Toilet Bedside Commode # Voids 1 3 # Bowel Movements 4 - Exam General appearance: alert, very pleasant 81-year-old female patient, in no apparent distress, the patient is currently on room air oxygen. Head exam: Present: atraumatic, normocephalic, normal inspection Eye exam: Present: normal appearance, PERRL, EOMI. Absent: scleral icterus, conjunctival injection, periorbital swelling ENT exam: Present: normal exam, mucous membranes dry Neck exam: Present: Neck is quite flexed to the left Absent: tenderness, meningismus, lymphadenopathy Respiratory exam: Present: normal lung sounds bilaterally. Absent: respiratory distress, wheezes, rales, rhonchi, stridor, and the patient has significant ky phoscoliosis of the cervical and thoracic spine. Her neck is quite flexed at this point in time. Cardiovascular Exam: Present: normal rhythm, tachycardia, normal heart sounds. Absent: systolic murmur, diastolic murmur, rubs, gallop, clicks GI/Abdominal exam: Present: soft, normal bowel sounds. Absent: distended, tenderness, guarding, rebound, rigid Extremities exam: Present: normal inspection, full ROM, normal capillary refill. Absent: tenderness, pedal edema, joint swelling, calf tenderness Back exam: Present: Severe kyphoscoliosis Neurological exam: Present: alert, oriented X3, CN II-XII intact Psychiatric exam: Present: normal affect, normal mood Skin exam: Present: warm, dry, intact, normal color. Absent: rash - Labs CBC & Chem 7: 11/13/21 08:05 11/13/21 08:05 Labs: Abnormal Lab Results - Last 24 Hours (Table) 11/12/21 11/13/21 11/13/21 Range/Units 12:28 08:05 08:05 Plt Count 112 L (150-450) k/uL Lymphocytes # 0.7 L (1.0-4.8) k/uL D-Dimer (<0.60) mg/L FEU BUN 18 H (7-17) mg/dL Creatinine 0.48 L (0.52-1.04) mg/dL Glucose 105 H (74-99) mg/dL Calcium 8.3 L (8.4-10.2) mg/dL AST 60 H (14-36) U/L Alkaline Phosphatase 149 H (38-126) U/L C-Reactive Protein 6.5 H (<1.0) mg/dL Total Protein 6.2 L (6.3-8.2) g/dL Albumin 3.3 L (3.5-5.0) g/dL Procalcitonin 0.12 H (0.02-0.09) ng/mL 11/13/21 Range/Units 08:05 Plt Count (150-450) k/uL Lymphocytes # (1.0-4.8) k/uL D-Dimer 0.63 H (<0.60) mg/L FEU BUN (7-17) mg/dL Creatinine (0.52-1.04) mg/dL Glucose (74-99) mg/dL Calcium (8.4-10.2) mg/dL AST (14-36) U/L Alkaline Phosphatase (38-126) U/L C-Reactive Protein (<1.0) mg/dL Total Protein (6.3-8.2) g/dL Albumin (3.5-5.0) g/dL Procalcitonin (0.02-0.09) ng/mL Assessment and Plan Assessment: 1 acute COVID 19 infection in 7-year-old female patient who has widely received a vaccination for COVID 19 and the patient has received the message RNA Pfizer vaccine without a booster. The patient is presenting with constitutional symptoms along with some cough and shortness of breath related to the infection. Chest x-ray does not show clear signs of an infection/pneumonia. The patient's on Room Air Oxygen. Her Pulse Ox Is Maintained above 90%. Pro-calcitonin 0.12. The Exact timing for her symptom onset cannot be clearly established. The patient has been sick probably for less than a week. 2 chronic atrial fibrillation method on long-term anticoagulation with Xarelto 3 cervical and thoracic kyphoscoliosis 4 thrombocytopenia, a chronic problem for this patient Plan The patient was seen and evaluated Stable and on room air Cleared for discharge from the pulmonary standpoint I, the cosigning physician, performed a history & physical examination of the patient. Lungs sounds are clear. Maintaining good O2 saturations in the 90s on room air. I discussed the assessment and plan of care with my nurse practitioner, Angi Grimm. I attest to the above note as dictated by her.
--- NOTE | 2021-11-13 17:47 | P.PN ---
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 Chronic stable medical conditions include atrial fibrillation, GERD, hypertension, mitral valve prolapse, chronic low back pain with any dizziness, scoliosis, right hand tremors, anxiety depression. Does use a walker to ambulate. Per the EMS/ER report patient was not able to ambulate without assistance which is not normal. Decrease eating and drinking at least the last 23 days. Patient also has a sore throat low-grade fever for at least 2 days. Cough. No sputum. Pulse ox initially noted was 89%. Tired rundown. Admitted with COVID 19 pneumonitis and mild hypoxic failure. November 13: Feeling better. Eating about 25-50%. Does feel tired. And weak. Daughter was called and she has not comfortable taking the patient home. PTOT been consulted. Discharged postponed until further evaluation by PT OT. Review of systems: Was done for constitutional, cardiovascular, GI, pulmonary. relevant finding as above Active Medications Acetaminophen (Acetaminophen Tab 325 Mg Tab) 650 mg PO Q4HR PRN PRN Reason: Fever and/ or Pain Acetaminophen/Butalbital/Caffeine (Butalb/Apap/Caff 50-325-40mg Tab) 1 each PO QID PRN PRN Reason: Migraine Headache Last Admin: 11/13/21 12:09 Dose: 1 each Documented by: Alprazolam (Alprazolam 0.25 Mg Tab) 0.25 mg PO Q6HR PRN PRN Reason: Anxiety Ascorbic Acid (Ascorbic Acid 500 Mg Tab) 500 mg PO BID [facility] Last Admin: 11/13/21 12:08 Dose: 500 mg Documented by: Aspirin (Aspirin 81 Mg) 81 mg PO HS [facility] Last Admin: 11/12/21 21:47 Dose: 81 mg Documented by: Baclofen (Baclofen 10 Mg Tab) 10 mg PO Q6H [facility] Last Admin: 11/13/21 17:02 Dose: 10 mg Documented by: Calcium Carbonate/Glycine (Calcium Carbonate 500 Mg Chewable) 1,000 mg PO Q4HR PRN PRN Reason: Dyspepsia Last Admin: 11/12/21 21:50 Dose: 1,000 mg Documented by: Carbidopa/Levodopa (Carbidopa-Levodopa 25-100 Mg 1 Each Tab) 1 each PO 0500,0800,1100,1400 [facility] Last Admin: 11/13/21 15:12 Dose: 1 each Documented by: Carbidopa/Levodopa (Carbidopa-Levodopa 25-100 Mg 1 Each Tab) 1 each PO 1700,2000,2300 [facility] Last Admin: 11/13/21 17:02 Dose: 1 each Documented by: Cholecalciferol (Cholecalciferol 125 Mcg (5000 Iu) Tablet) 125 mcg PO DAILY [facility] Last Admin: 11/13/21 08:25 Dose: 125 mcg Documented by: Dexamethasone (Dexamethasone 2 Mg Tab) 6 mg PO DAILY [facility] Last Admin: 11/13/21 08:25 Dose: 6 mg Documented by: Famotidine (Famotidine 20 Mg Tab) 20 mg PO BID [facility] Last Admin: 11/13/21 08:25 Dose: 20 mg Documented by: Furosemide (Furosemide 20 Mg Tab) 20 mg PO DAILY [facility] Last Admin: 11/13/21 08:25 Dose: 20 mg Documented by: Sodium Chloride (Saline 0.9%) 1,000 mls @ 75 mls/hr IV .[id number] [facility] Last Admin: 11/13/21 16:28 Dose: Not Given Documented by: Lactulose (Lactulose 20 Gm/30 Ml Cup) 20 gm PO DAILY PRN PRN Reason: Constipation Last Admin: 11/12/21 21:50 Dose: 20 gm Documented by: Melatonin (Melatonin 3 Mg Tablet) 3 mg PO HS PRN PRN Reason: Insomnia Metoprolol Tartrate (Metoprolol Tartrate 50 Mg Tab) 50 mg PO BID-W/MEALS [facility] Last Admin: 11/13/21 17:02 Dose: 50 mg Documented by: Naloxone HCl (Naloxone 0.4 Mg/Ml 1 Ml Vial) 0.2 mg IV Q2M PRN PRN Reason: Opioid Reversal Ondansetron HCl (Ondansetron 4 Mg/2 Ml Vial) 4 mg IVP Q8HR PRN PRN Reason: Nausea And Vomiting Potassium Chloride (Potassium Chloride Er 10 Meq Tab.Er.Prt) 10 meq PO DAILY [facility] Last Admin: 11/13/21 08:25 Dose: 10 meq Documented by: Rivaroxaban (Rivaroxaban 15 Mg Tab) 15 mg PO DAILY [facility]; Protocol Last Admin: 11/13/21 08:25 Dose: 15 mg Documented by: Sertraline HCl (Sertraline 50 Mg Tab) 50 mg PO DAILY [facility] Last Admin: 11/13/21 08:25 Dose: 50 mg Documented by: Tramadol HCl (Tramadol 50 Mg Tab) 50 mg PO Q6H PRN PRN Reason: Moderate Pain Zinc Sulfate (Zinc Sulfate 220 Mg Cap) 220 mg PO DAILY [facility] Last Admin: 11/13/21 08:25 Dose: 220 mg Documented by: Past medical history to include: Atrial fibrillation, GERD, hypertension, mitral valve prolapse, colitis, lower back herniated disc, scoliosis, right hand tremor, pain clinic procedures, anxiety depression Social history: Patient lives with her daughter. Does use a walker. Patient smoked for 20 years stopped in 1985. No alcohol. Family history: Diabetes, alcohol Physical examination: VITAL SIGNS: 98.4, 97, 16, 138/90, 95% room air GENERAL: , laying in bed, more awake, neck tilted to left. EYES: Pupils equal. Conjunctiva normal. HEENT: External appearance of nose and ears normal, oral cavity dry mucous membranes. NECK: JVD not raised; masses not palpable. HEART: First and second heart sounds are normal; no edema. LUNGS: Respiratory rate increased; decreased breath sounds, ABDOMEN: Soft, nontender, liver spleen not palpable, no masses palpable. PSYCH: Alert and oriented x3; mood and affect normal. MUSCULOSKELETAL:No Clubbing/cyanosis;muscles-grossly intact. Neck tilted to left NEUROLOGICAL: Cranial nerves grossly intact; no facial asymmetry, power and sensation grossly intact. INVESTIGATIONS, reviewed in the clinical context: November 13: White count 5.9 hemoglobin 11.7 platelets 112 d-dimer 0.63 potassium 3.5 BUN 18 creatinine 0.48 White count 5.3 hemoglobin 11.5 platelets 113 sodium 135 potassium 3.2. 23 creatinine 0.61 albumin 3.4 Coronavirus [PCR]: Not detected EKG tracing personally reviewed by me-atrial flutter/fibrillation. Nonspecific ST segment changes. Rate 95 Chest x-ray film personally reviewed by me-possible infiltrate. Some cardiomegaly. Assessment and plan: -Acute COVID 19 pneumonitis. Vitamin C, vitamin D, zinc. On xarelto -Acute hypoxic respiratory failure will pulse ox 89% at home and 90% on room air upon presentation.: Better Dexamethasone 6 mg daily. Supplement oxygen to keep pulse ox above 92% -Persistent atrial flutter fibrillation, controlled Continue xarelto. Lopressor 50 mg 3 times a day -GERD Pepcid 20 mg twice a day -Chronic gait dysfunction, uses a walker Activity as tolerated -Anxiety/depression Zoloft 50 mg a day -Chronic muscle spasms Baclofen 10 mg every 6 -Acute medical debility. PT OT consulted. Medications to continue. PTOT. manager production to follow.
[2021-11-13] MEDS: ASPIRIN 81 MG PO SCH (19:50)
[2021-11-14] MEDS: CARBIDOPA-LEVODOPA 25-100 MG 1 EACH TAB PO SCH ×6 (05:20→19:56)
[2021-11-14] MEDS: BACLOFEN 10 MG TAB PO SCH ×3 (05:20→17:31)
[2021-11-14] MEDS: BUTALB/APAP/CAFF 50-325-40MG TAB PO PRN (06:14)
[2021-11-14] MEDS: SODIUM CHLORIDE 0.9% 1,000 ML IV SCH ×2 (08:21→19:56)
[2021-11-14] MEDS: POTASSIUM CHLORIDE ER 10 MEQ TAB.ER.PRT PO SCH (08:21)
[2021-11-14] MEDS: FUROSEMIDE 20 MG TAB PO SCH (08:21)
[2021-11-14] MEDS: SERTRALINE 50 MG TAB PO SCH (08:21)
[2021-11-14] MEDS: CHOLECALCIFEROL 125 MCG (5000 IU) TABLET PO SCH (08:21)
[2021-11-14] MEDS: FAMOTIDINE 20 MG TAB PO SCH ×2 (08:21→19:56)
[2021-11-14] MEDS: dexAMETHasone 2 MG TAB PO SCH (08:21)
[2021-11-14] MEDS: ZINC SULFATE 220 MG CAP PO SCH (08:21)
[2021-11-14] MEDS: ASCORBIC ACID 500 MG TAB PO SCH ×2 (08:21→19:56)
[2021-11-14] MEDS: METOPROLOL TARTRATE 50 MG TAB PO SCH ×2 (08:22→17:31)
[2021-11-14] MEDS: RIVAROXABAN 15 MG TAB PO SCH (08:55)
--- NOTE | 2021-11-14 16:04 | P.PN ---
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 Chronic stable medical conditions include atrial fibrillation, GERD, hypertension, mitral valve prolapse, chronic low back pain with any dizziness, scoliosis, right hand tremors, anxiety depression. Does use a walker to ambulate. Per the EMS/ER report patient was not able to ambulate without assistance which is not normal. Decrease eating and drinking at least the last 23 days. Patient also has a sore throat low-grade fever for at least 2 days. Cough. No sputum. Pulse ox initially noted was 89%. Tired rundown. Admitted with COVID 19 pneumonitis and mild hypoxic failure. November 13: Feeling better. Eating about 25-50%. Does feel tired. And weak. Daughter was called and she has not comfortable taking the patient home. PTOT been consulted. Discharged postponed until further evaluation by PT OT. November 14: Eating better. Tired. Seen by PT OT. Recommended [facility] re[facility]. Social work consulted. Breathing stable. Review of systems: Was done for constitutional, cardiovascular, GI, pulmonary. relevant finding as above Active Medications Acetam/Butalbital/Caffeine/Codeine (Buta/Apap/Caf/Cod 75-144-71-30 Cap) 1 each PO Q6HR PRN PRN Reason: Headache Acetaminophen (Acetaminophen Tab 325 Mg Tab) 650 mg PO Q4HR PRN PRN Reason: Fever and/ or Pain Alprazolam (Alprazolam 0.25 Mg Tab) 0.25 mg PO Q6HR PRN PRN Reason: Anxiety Ascorbic Acid (Ascorbic Acid 500 Mg Tab) 500 mg PO BID [facility] Last Admin: 11/14/21 08:21 Dose: 500 mg Documented by: Aspirin (Aspirin 81 Mg) 81 mg PO HS [facility] Last Admin: 11/13/21 19:50 Dose: 81 mg Documented by: Baclofen (Baclofen 10 Mg Tab) 10 mg PO Q6H [facility] Last Admin: 11/14/21 12:14 Dose: 10 mg Documented by: Calcium Carbonate/Glycine (Calcium Carbonate 500 Mg Chewable) 1,000 mg PO Q4HR PRN PRN Reason: Dyspepsia Last Admin: 11/12/21 21:50 Dose: 1,000 mg Documented by: Carbidopa/Levodopa (Carbidopa-Levodopa 25-100 Mg 1 Each Tab) 1 each PO 0500,0800,1100,1400 [facility] Last Admin: 11/14/21 14:34 Dose: 1 each Documented by: Carbidopa/Levodopa (Carbidopa-Levodopa 25-100 Mg 1 Each Tab) 1 each PO 1700,2000,2300 [facility] Last Admin: 11/13/21 23:10 Dose: 1 each Documented by: Cholecalciferol (Cholecalciferol 125 Mcg (5000 Iu) Tablet) 125 mcg PO DAILY [facility] Last Admin: 11/14/21 08:21 Dose: 125 mcg Documented by: Dexamethasone (Dexamethasone 2 Mg Tab) 6 mg PO DAILY [facility] Last Admin: 11/14/21 08:21 Dose: 6 mg Documented by: Famotidine (Famotidine 20 Mg Tab) 20 mg PO BID [facility] Last Admin: 11/14/21 08:21 Dose: 20 mg Documented by: Furosemide (Furosemide 20 Mg Tab) 20 mg PO DAILY [facility] Last Admin: 11/14/21 08:21 Dose: 20 mg Documented by: Sodium Chloride (Saline 0.9%) 1,000 mls @ 75 mls/hr IV .[id number] [facility] Last Admin: 11/14/21 08:21 Dose: Not Given Documented by: Lactulose (Lactulose 20 Gm/30 Ml Cup) 20 gm PO DAILY PRN PRN Reason: Constipation Last Admin: 11/12/21 21:50 Dose: 20 gm Documented by: Melatonin (Melatonin 3 Mg Tablet) 3 mg PO HS PRN PRN Reason: Insomnia Metoprolol Tartrate (Metoprolol Tartrate 50 Mg Tab) 50 mg PO BID-W/MEALS [facility] Last Admin: 11/14/21 08:22 Dose: 50 mg Documented by: Naloxone HCl (Naloxone 0.4 Mg/Ml 1 Ml Vial) 0.2 mg IV Q2M PRN PRN Reason: Opioid Reversal Ondansetron HCl (Ondansetron 4 Mg/2 Ml Vial) 4 mg IVP Q8HR PRN PRN Reason: Nausea And Vomiting Potassium Chloride (Potassium Chloride Er 10 Meq Tab.Er.Prt) 10 meq PO DAILY [facility] Last Admin: 11/14/21 08:21 Dose: 10 meq Documented by: Rivaroxaban (Rivaroxaban 15 Mg Tab) 15 mg PO DAILY [facility]; Protocol Last Admin: 11/14/21 08:55 Dose: 15 mg Documented by: Sertraline HCl (Sertraline 50 Mg Tab) 50 mg PO DAILY [facility] Last Admin: 11/14/21 08:21 Dose: 50 mg Documented by: Tramadol HCl (Tramadol 50 Mg Tab) 50 mg PO Q6H PRN PRN Reason: Moderate Pain Zinc Sulfate (Zinc Sulfate 220 Mg Cap) 220 mg PO DAILY [facility] Last Admin: 11/14/21 08:21 Dose: 220 mg Documented by: Past medical history to include: Atrial fibrillation, GERD, hypertension, mitral valve prolapse, colitis, lower back herniated disc, scoliosis, right hand tremor, pain clinic procedures, anxiety depression Social history: Patient lives with her daughter. Does use a walker. Patient smoked for 20 years stopped in 1985. No alcohol. Family history: Diabetes, alcohol Physical examination: VITAL SIGNS: 87.9, 75, 17, 129/88, 97% room air GENERAL: , laying in bed, awake, neck tilted to left. EYES: Pupils equal. Conjunctiva normal. HEENT: External appearance of nose and ears normal, oral cavity dry mucous membranes. NECK: JVD not raised; masses not palpable. HEART: First and second heart sounds are normal; no edema. LUNGS: Respiratory rate normal, decreased breath sounds, ABDOMEN: Soft, nontender, liver spleen not palpable, no masses palpable. PSYCH: Alert and oriented x3; mood and affect normal. MUSCULOSKELETAL:No Clubbing/cyanosis;muscles-grossly intact. Neck tilted to left NEUROLOGICAL: Cranial nerves grossly intact; no facial asymmetry, power and sensation grossly intact. INVESTIGATIONS, reviewed in the clinical context: November 13: White count 5.9 hemoglobin 11.7 platelets 112 d-dimer 0.63 potassium 3.5 BUN 18 creatinine 0.48 White count 5.3 hemoglobin 11.5 platelets 113 sodium 135 potassium 3.2. 23 creatinine 0.61 albumin 3.4 Coronavirus [PCR]: Not detected EKG tracing personally reviewed by me-atrial flutter/fibrillation. Nonspecific ST segment changes. Rate 95 Chest x-ray film personally reviewed by me-possible infiltrate. Some cardiomegaly. Assessment and plan: -Acute COVID 19 pneumonitis. Vitamin C, vitamin D, zinc. On xarelto -Acute hypoxic respiratory failure will pulse ox 89% at home and 90% on room air upon presentation.: Better Dexamethasone 6 mg daily. Supplement oxygen to keep pulse ox above 92% -Persistent atrial flutter fibrillation, controlled Continue xarelto. Lopressor 50 mg 3 times a day -GERD Pepcid 20 mg twice a day -Chronic gait dysfunction, uses a walker Activity as tolerated -Anxiety/depression Zoloft 50 mg a day -Chronic muscle spasms Baclofen 10 mg every 6 -Acute medical debility. PT OT: Recommend [facility] Medications to continue. PTOT. Consult Dr. Galindo. [employer] consulted for [facility] re[facility]. Discussed with patient.
[2021-11-14] MEDS: BUTA/APAP/CAF/COD 50-325-40-30 CAP PO PRN (17:59)
[2021-11-14] MEDS: ASPIRIN 81 MG PO SCH (19:56)
[2021-11-15] MEDS: BACLOFEN 10 MG TAB PO SCH ×4 (00:04→17:25)
[2021-11-15] MEDS: BUTA/APAP/CAF/COD 50-325-40-30 CAP PO PRN ×4 (00:04→20:39)
[2021-11-15] MEDS: CARBIDOPA-LEVODOPA 25-100 MG 1 EACH TAB PO SCH ×7 (00:05→20:39)
[2021-11-15] MEDS: ZINC SULFATE 220 MG CAP PO SCH (08:20)
[2021-11-15] MEDS: SERTRALINE 50 MG TAB PO SCH (08:20)
[2021-11-15] MEDS: FAMOTIDINE 20 MG TAB PO SCH ×2 (08:20→20:39)
[2021-11-15] MEDS: POTASSIUM CHLORIDE ER 10 MEQ TAB.ER.PRT PO SCH (08:20)
[2021-11-15] MEDS: FUROSEMIDE 20 MG TAB PO SCH (08:20)
[2021-11-15] MEDS: dexAMETHasone 2 MG TAB PO SCH (08:20)
[2021-11-15] MEDS: METOPROLOL TARTRATE 50 MG TAB PO SCH ×2 (08:20→17:25)
[2021-11-15] MEDS: ASCORBIC ACID 500 MG TAB PO SCH ×2 (08:20→20:39)
[2021-11-15] MEDS: CHOLECALCIFEROL 125 MCG (5000 IU) TABLET PO SCH (08:21)
[2021-11-15] MEDS: RIVAROXABAN 15 MG TAB PO SCH (08:21)
[2021-11-15] MEDS: SODIUM CHLORIDE 0.9% 1,000 ML IV SCH ×2 (12:02→20:40)
--- NOTE | 2021-11-15 12:04 | P.GSCN ---
History of Present Illness Consult date: 11/15/21 Reason for Consult: Rectal prolapse History of present illness: Is an 81-year-old female with admission to the hospital for possible pneumonia. Patient states that she's had rectal prolapse for several months. She describes approximately 4-5 inches of rectum prolapsing. She's had some bleeding from this. Past Medical History Past Medical History: Atrial Fibrillation, Eye Disorder, GERD/Reflux, Hyp ertension, Mitral Valve Prolapse (MVP) Additional Past Medical History / Comment(s): Mitral valve prolapse, hypoglycemia, colitis/gastroenteritis with sepsis, migrained, back pain, herniated disc, scoliosis, R hand tremors, past L foot ulcer. History of Any Multi-Drug Resistant Organisms: None Reported Past Surgical History: Back Surgery, Cholecystectomy, Heart Catheterization Additional Past Surgical History / Comment(s): Back has 2 rods, bilateral cataract removals, colonoscopy, hemorrhoidectomy, EGD, pain clinic procedures. Past Anesthesia/Blood Transfusion Reactions: No Reported Reaction Smoking Status: Former smoker - Past Family History Father Additional Family Medical History / Comment(s): ETOH, never went to the doctors Mother Family Medical History: Diabetes Mellitus Medications and Allergies Home Medications Medication Instructions Recorded Confirmed Type Aspirin 81 mg PO HS 10/07/14 11/12/21 History Baclofen [Lioresal] 10 mg PO Q6H 10/07/14 11/12/21 History Butalb/Acetaminophen/Caffeine 1 - 2 tab PO QID PRN MDD 6 tabs 10/07/14 11/12/21 History [Fioricet 50-325-40] Sertraline [Zoloft] 50 mg PO DAILY 10/07/14 11/12/21 History Carbidopa-Levodopa 25-100 mg 1 tab PO DIRECTED 07/22/20 11/12/21 History [Sinemet 25-100 mg] Potassium Chloride ER [K-Dur 10] 10 meq PO DAILY 5 Days #5 07/25/20 11/12/21 Rx tab.er.prt Rivaroxaban [Xarelto] 15 mg PO DAILY tab 07/25/20 11/12/21 Rx Furosemide [Lasix] 20 mg PO DAILY 11/12/21 11/12/21 History Metoprolol Tartrate [Lopressor] 50 mg PO BID-W/MEALS 11/12/21 11/12/21 History Ascorbic Acid [Vitamin C] 500 mg PO BID #60 tab 11/13/21 Rx Cholecalciferol [Vitamin D3 (125 125 mcg PO DAILY #30 tablet 11/13/21 Rx Mcg = 5000 Iu)] Zinc Sulfate [Orazinc] 220 mg PO DAILY #30 cap 11/13/21 Rx Allergies Allergy/AdvReac Type Severity Reaction Status Date / Time No Known Allergies Allergy Verified 07/22/20 08:38 Surgical - Exam Vital Signs Temp Pulse Resp BP Pulse Ox 99.3 F 103 H 18 94/64 90 L 11/11/21 23:57 11/11/21 23:57 11/11/21 23:57 11/11/21 23:57 11/11/21 23:57 - General well developed, well nourished, no distress - Eyes PERRL - ENT normal pinna - Neck no masses - Respiratory normal expansion - Cardiovascular Rhythm: regular - Abdomen Abdomen: soft, non tender Results - Labs 11/13/21 08:05 11/13/21 08:05 Assessment and Plan Assessment: History of rectal prolapse. Patient will require intervention once she feels well. She will need to wait at least a month due to her recent cold pneumonia. She will ultimately undergo colonoscopy and possible colon resection for her rectal prolapse.
--- NOTE | 2021-11-15 17:10 | P.PN ---
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 Chronic stable medical conditions include atrial fibrillation, GERD, hypertension, mitral valve prolapse, chronic low back pain with any dizziness, scoliosis, right hand tremors, anxiety depression. Does use a walker to ambulate. Per the EMS/ER report patient was not able to ambulate without assistance which is not normal. Decrease eating and drinking at least the last 23 days. Patient also has a sore throat low-grade fever for at least 2 days. Cough. No sputum. Pulse ox initially noted was 89%. Tired rundown. Admitted with COVID 19 pneumonitis and mild hypoxic failure. November 13: Feeling better. Eating about 25-50%. Does feel tired. And weak. Daughter was called and she has not comfortable taking the patient home. PTOT been consulted. Discharged postponed until further evaluation by PT OT. November 14: Eating better. Tired. Seen by PT OT. Recommended [facility]. Social work consulted. Breathing stable. November 15: Oral intake fair. Patient's today's wondering if she can go home. We will await PTOT recommendation from tomorrow. Review of systems: Was done for constitutional, cardiovascular, GI, pulmonary. relevant finding as above Active Medications Acetam/Butalbital/Caffeine/Codeine (Buta/Apap/Caf/Cod 02-102-31-30 Cap) 1 each PO Q6HR PRN PRN Reason: Headache Last Admin: 11/15/21 11:59 Dose: 1 each Documented by: Acetaminophen (Acetaminophen Tab 325 Mg Tab) 650 mg PO Q4HR PRN PRN Reason: Fever and/ or Pain Alprazolam (Alprazolam 0.25 Mg Tab) 0.25 mg PO Q6HR PRN PRN Reason: Anxiety Ascorbic Acid (Ascorbic Acid 500 Mg Tab) 500 mg PO BID [facility] Last Admin: 11/15/21 08:20 Dose: 500 mg Documented by: Aspirin (Aspirin 81 Mg) 81 mg PO HS [facility] Last Admin: 11/14/21 19:56 Dose: 81 mg Documented by: Baclofen (Baclofen 10 Mg Tab) 10 mg PO Q6H [facility] Last Admin: 11/15/21 11:59 Dose: 10 mg Documented by: Calcium Carbonate/Glycine (Calcium Carbonate 500 Mg Chewable) 1,000 mg PO Q4HR PRN PRN Reason: Dyspepsia Last Admin: 11/12/21 21:50 Dose: 1,000 mg Documented by: Carbidopa/Levodopa (Carbidopa-Levodopa 25-100 Mg 1 Each Tab) 1 each PO 0500,0800,1100,1400 [facility] Last Admin: 11/15/21 14:34 Dose: 1 each Documented by: Carbidopa/Levodopa (Carbidopa-Levodopa 25-100 Mg 1 Each Tab) 1 each PO 1700,2000,2300 [facility] Last Admin: 11/15/21 00:05 Dose: 1 each Documented by: Cholecalciferol (Cholecalciferol 125 Mcg (5000 Iu) Tablet) 125 mcg PO DAILY [facility] Last Admin: 11/15/21 08:21 Dose: 125 mcg Documented by: Dexamethasone (Dexamethasone 2 Mg Tab) 6 mg PO DAILY [facility] Last Admin: 11/15/21 08:20 Dose: 6 mg Documented by: Famotidine (Famotidine 20 Mg Tab) 20 mg PO BID [facility] Last Admin: 11/15/21 08:20 Dose: 20 mg Documented by: Furosemide (Furosemide 20 Mg Tab) 20 mg PO DAILY [facility] Last Admin: 11/15/21 08:20 Dose: 20 mg Documented by: Sodium Chloride (Saline 0.9%) 1,000 mls @ 75 mls/hr IV .[id number] [facility] Last Admin: 11/15/21 12:02 Dose: Not Given Documented by: Lactulose (Lactulose 20 Gm/30 Ml Cup) 20 gm PO DAILY PRN PRN Reason: Constipation Last Admin: 11/12/21 21:50 Dose: 20 gm Documented by: Melatonin (Melatonin 3 Mg Tablet) 3 mg PO HS PRN PRN Reason: Insomnia Metoprolol Tartrate (Metoprolol Tartrate 50 Mg Tab) 50 mg PO BID-W/MEALS [facility] Last Admin: 11/15/21 08:20 Dose: 50 mg Documented by: Naloxone HCl (Naloxone 0.4 Mg/Ml 1 Ml Vial) 0.2 mg IV Q2M PRN PRN Reason: Opioid Reversal Ondansetron HCl (Ondansetron 4 Mg/2 Ml Vial) 4 mg IVP Q8HR PRN PRN Reason: Nausea And Vomiting Potassium Chloride (Potassium Chloride Er 10 Meq Tab.Er.Prt) 10 meq PO DAILY [facility] Last Admin: 11/15/21 08:20 Dose: 10 meq Documented by: Rivaroxaban (Rivaroxaban 15 Mg Tab) 15 mg PO DAILY [facility]; Protocol Last Admin: 11/15/21 08:21 Dose: 15 mg Documented by: Sertraline HCl (Sertraline 50 Mg Tab) 50 mg PO DAILY [facility] Last Admin: 11/15/21 08:20 Dose: 50 mg Documented by: Tramadol HCl (Tramadol 50 Mg Tab) 50 mg PO Q6H PRN PRN Reason: Moderate Pain Last Admin: 11/14/21 20:05 Dose: 50 mg Documented by: Zinc Sulfate (Zinc Sulfate 220 Mg Cap) 220 mg PO DAILY [facility] Last Admin: 11/15/21 08:20 Dose: 220 mg Documented by: Past medical history to include: Atrial fibrillation, GERD, hypertension, mitral valve prolapse, colitis, lower back herniated disc, scoliosis, right hand tremor, pain clinic procedures, anxiety depression Social history: Patient lives with her daughter. Does use a walker. Patient smoked for 20 years stopped in 1985. No alcohol. Family history: Diabetes, alcohol Physical examination: VITAL SIGNS: 97.9, 96, 18, 115/76, 93% room air GENERAL: , laying in bed, awake, neck tilted to left. EYES: Pupils equal. Conjunctiva normal. HEENT: External appearance of nose and ears normal, oral cavity dry mucous membranes. NECK: JVD not raised; masses not palpable. HEART: First and second heart sounds are normal; no edema. LUNGS: Respiratory rate normal, decreased breath sounds, ABDOMEN: Soft, nontender, liver spleen not palpable, no masses palpable. PSYCH: Alert and oriented x3; mood and affect normal. MUSCULOSKELETAL:No Clubbing/cyanosis;muscles-grossly intact. Neck tilted to left NEUROLOGICAL: Cranial nerves grossly intact; no facial asymmetry, power and sensation grossly intact. INVESTIGATIONS, reviewed in the clinical context: November 13: White count 5.9 hemoglobin 11.7 platelets 112 d-dimer 0.63 potassium 3.5 BUN 18 creatinine 0.48 White count 5.3 hemoglobin 11.5 platelets 113 sodium 135 potassium 3.2. 23 creatinine 0.61 albumin 3.4 Coronavirus [PCR]: Not detected EKG tracing personally reviewed by me-atrial flutter/fibrillation. Nonspecific ST segment changes. Rate 95 Chest x-ray film personally reviewed by me-possible infiltrate. Some cardiomegaly. Assessment and plan: -Acute COVID 19 pneumonitis. Vitamin C, vitamin D, zinc. On xarelto -Acute hypoxic respiratory failure will pulse ox 89% at home and 90% on room air upon presentation.: Better Dexamethasone 6 mg daily. Supplement oxygen to keep pulse ox above 92% -Persistent atrial flutter fibrillation, controlled Continue xarelto. Lopressor 50 mg 3 times a day -GERD Pepcid 20 mg twice a day -Chronic gait dysfunction, uses a walker Activity as tolerated -Anxiety/depression Zoloft 50 mg a day -Chronic muscle spasms Baclofen 10 mg every 6 -Acute medical debility. PT OT: Recommend [facility] Continue current medications. Discussed with patient. Patient is wondering if she can go home. Awake PTOT input from tomorrow.
[2021-11-15] MEDS: ASPIRIN 81 MG PO SCH (20:39)
[2021-11-16] MEDS: CARBIDOPA-LEVODOPA 25-100 MG 1 EACH TAB PO SCH ×6 (00:32→13:24)
[2021-11-16] MEDS: BACLOFEN 10 MG TAB PO SCH ×3 (00:33→11:03)
[2021-11-16] MEDS: BUTA/APAP/CAF/COD 50-325-40-30 CAP PO PRN ×3 (02:20→13:24)
--- NOTE | 2021-11-16 06:01 | P.CONS ---
History of Present Illness - Chief Complaint Medical debility - History of Present Illness I had the opportunity to see patient for inpatient rehab consultation with regard to medical debility. Patient admitted to [facility] November 11 weakness, cough, fever and Covid positive pneumonia. Admitted to Dr. Banda. Seen by Dr. Sun. Seen by Dr. Lorenzo gary for rectal prolapse 5 inch, treatment more medically stable. Chest x-rays followed for mild infiltrates in the left base. PT and OT prescribed. Previous functional history as elicited from patient: 81-year-old right-handed white female who is who lives and daughters first-floor of a 2 floor home. Daughter does cooking, laundry, driving. Patient describes independent with sitdown shower and gait with [address] Juan Miguel Monique. Review of Systems Review of systems: ENT: Denies sneezes or discharge. Eyes: Denies discharge or photophobia. Cardiac: Denies chest pain or palpitation. Pulmonary: Mild shortness of breath. Breast: Denies discharge or lumps. Gastrointestinal: Denies nausea, emesis, constipation, diarrhea. Genitourinary: Denies discharge or frequency. Musculoskeletal: Denies muscle or bone aches. Neurologic: Mild weakness. Endocrine: Denies shakes or sweats. Oncology: Denies cancers. Dermatologic: Denies rash, itching, pruritus. ALLERGY/immunology: Denies sneezes, rashes. Past Medical History Past Medical History: Atrial Fibrillation, Eye Disorder, GERD/Reflux, Hypertension, Mitral Valve Prolapse (MVP) Additional Past Medical History / Comment(s): Mitral valve prolapse, hypoglycemia, colitis/gastroenteritis with sepsis, migrained, back pain, herniated disc, scoliosis, R hand tremors, past L foot ulcer. History of Any Multi-Drug Resistant Organisms: None Reported Past Surgical History: Back Surgery, Cholecystectomy, Heart Catheterization Additional Past Surgical History / Comment(s): Back has 2 rods, bilateral cataract removals, colonoscopy, hemorrhoidectomy, EGD, pain clinic procedures. Past Anesthesia/Blood Transfusion Reactions: No Reported Reaction Smoking Status: Former smoker - Past Family History Father Additional Family Medical History / Comment(s): ETOH, never went to the doctors Mother Family Medical History: Diabetes Mellitus Medications and Allergies Home Medications Medication Instructions Recorded Confirmed Type Aspirin 81 mg PO HS 10/07/14 11/12/21 History Baclofen [Lioresal] 10 mg PO Q6H 10/07/14 11/12/21 History Butalb/Acetaminophen/Caffeine 1 - 2 tab PO QID PRN MDD 6 tabs 10/07/14 11/12/21 History [Fioricet 50-325-40] Sertraline [Zoloft] 50 mg PO DAILY 10/07/14 11/12/21 History Carbidopa-Levodopa 25-100 mg 1 tab PO DIRECTED 07/22/20 11/12/21 History [Sinemet 25-100 mg] Potassium Chloride ER [K-Dur 10] 10 meq PO DAILY 5 Days #5 07/25/20 11/12/21 Rx tab.er.prt Rivaroxaban [Xarelto] 15 mg PO DAILY tab 07/25/20 11/12/21 Rx Furosemide [Lasix] 20 mg PO DAILY 11/12/21 11/12/21 History Metoprolol Tartrate [Lopressor] 50 mg PO BID-W/MEALS 11/12/21 11/12/21 History Ascorbic Acid [Vitamin C] 500 mg PO BID #60 tab 11/13/21 Rx Cholecalciferol [Vitamin D3 (125 125 mcg PO DAILY #30 tablet 11/13/21 Rx Mcg = 5000 Iu)] Zinc Sulfate [Orazinc] 220 mg PO DAILY #30 cap 11/13/21 Rx Allergies Allergy/AdvReac Type Severity Reaction Status Date / Time No Known Allergies Allergy Verified 07/22/20 08:38 Physical Exam Vitals: Vital Signs Temp Pulse Resp BP BP Pulse Ox 11/16/21 02:00 97.9 F 80 18 135/83 95 11/15/21 20:00 16 11/15/21 19:01 98.0 F 105 H 16 111/69 95 11/15/21 14:33 97.9 F 96 18 115/76 93 L 11/15/21 07:15 98.0 F 94 18 144/98 97 Intake and Output 11/15/21 11/15/21 11/16/21 14:59 22:59 06:59 Intake Total 200 Balance 200 Intake: Oral 200 Other: Voiding Method Bedside Commode # Voids 1 1 Skin: Atrophic, intact. General: Thin build and comfortable appearance. Head: Normocephalic, atraumatic. Eyes: Symmetric. Pupils equal round. Ears: Symmetric. Hearing within normal limits. Mouth: Clear. Neck: Supple. Carotid without bruit. Cardiac: Regular rate and rhythm. Lungs: Clear anteriorly and posteriorly. Abdomen: Soft active nontender. Extremities: Normal tone. Back: Increase in thoracic kyphosis. Neurological: Mental status: Alert, cooperative, pleasant. Cranial nerves: Symmetric facial tone and trapezius. Motor: Active movement greater than antigravity all 4 limbs. Sensation: Intact throughout. DTRs: Symmetric and equal throughout. Mobility: Sits and stands with minimal and moderate assist into bed. Results CBC & Chem 7: 11/13/21 08:05 11/13/21 08:05 Assessment and Plan (1) Pneumonia due to COVID-19 virus Current Visit: Yes Status: Acute Code(s): U07.1 - COVID-19; J12.82 - PNEUMONIA DUE TO CORONAVIRUS DISEASE 2019 SNOMED Code(s): 785006458751981724 (2) Atrial fibrillation with RVR Current Visit: No Status: Acute Code(s): I48.91 - UNSPECIFIED ATRIAL FIBRILL ATION SNOMED Code(s): 823215813133152 (3) Bleeding hemorrhoid Current Visit: No Status: Acute Code(s): K64.9 - UNSPECIFIED HEMORRHOIDS SNOMED Code(s): 73207502 Plan: comments and plan: At this time PT and OT are prescribed. Hopefully, patient hasn't to become too debilitated as she has been here only a few days. We'll follow therapy with yourself for possible need and benefit of inpatient rehab. Currently would anticipate return to home with daughter support and support services.
[2021-11-16 07:57] LABS: African American GFR (CKD) >90 (>60 ml/min/1.73 sqM); Anion Gap 6 mmol/L; Blood Urea Nitrogen 12 mg/dL (7-17); Calcium 8.8 mg/dL (8.4-10.2); Carbon Dioxide 31 mmol/L (22-30); Chloride 101 mmol/L (98-107); Glucose 91 mg/dL (74-99); Non-African American GFR(CKD) 87 (>60 ml/min/1.73 sqM); Potassium 3.5 mmol/L (3.5-5.1); Sodium 138 mmol/L (137-145)
[2021-11-16] MEDS: ASCORBIC ACID 500 MG TAB PO SCH (08:16)
[2021-11-16] MEDS: METOPROLOL TARTRATE 50 MG TAB PO SCH (08:16)
[2021-11-16] MEDS: FUROSEMIDE 20 MG TAB PO SCH (08:16)
[2021-11-16] MEDS: ZINC SULFATE 220 MG CAP PO SCH (08:16)
[2021-11-16] MEDS: CHOLECALCIFEROL 125 MCG (5000 IU) TABLET PO SCH (08:16)
[2021-11-16] MEDS: dexAMETHasone 2 MG TAB PO SCH (08:16)
[2021-11-16] MEDS: FAMOTIDINE 20 MG TAB PO SCH (08:16)
[2021-11-16] MEDS: POTASSIUM CHLORIDE ER 10 MEQ TAB.ER.PRT PO SCH (08:17)
[2021-11-16] MEDS: RIVAROXABAN 15 MG TAB PO SCH (08:18)
[2021-11-16] MEDS: SERTRALINE 50 MG TAB PO SCH (08:18)
[2021-11-16 08:53] VITALS: BP 129/85; PULSE 81; RESP 16; TEMP 98
[2021-11-16] MEDS: SODIUM CHLORIDE 0.9% 1,000 ML IV SCH (11:04)
--- NOTE | 2021-11-16 15:21 | P.PN ---
Subjective Progress Note Date: 11/16/21 CHIEF COMPLAINT: Rectal prolapse HISTORY OF PRESENT ILLNESS: Patient's rectal prolapse is currently reduced. She denies any further bleeding. Denies rectal pain. She is currently hospitalized with COVID-19 pneumonia. Afebrile. Sodium 138 potassium 3.5 creatinine 0.56 PHYSICAL EXAM: VITAL SIGNS: Reviewed. GENERAL: Well-developed in no acute distress. HEENT: No sclera icterus. Extraocular movements grossly intact. Moist buccal mucosa. Head is atraumatic, normocephalic. ABDOMEN: Soft. Nondistended. Nontender. NEUROLOGIC: Alert and oriented. Cranial nerves II through XII grossly intact. ASSESSMENT: 1. Rectal prolapse 2. COVID-19 pneumonia PLAN: -Patient will require surgical intervention for the rectal prolapse outpatient -Recommend to wait at least one month for surgical intervention due to recent Covid pneumonia -Patient did ultimately undergo colonoscopy and possible colon resection for her rectal prolapse -Continue supportive care Physician Garment Examiner note has been reviewed by physician. Signing provider agrees with the documented findings, assessment, and plan of care. Objective - Vital Signs Vital signs: Vital Signs Temp 98 F 11/16/21 07:00 Pulse 81 11/16/21 07:00 Resp 16 11/16/21 07:00 BP 129/85 11/16/21 07:00 Pulse Ox 97 11/16/21 07:00 Intake & Output 11/15/21 11/16/21 11/16/21 18:59 06:59 18:59 Intake Total 200 Balance 200 Intake: Oral 200 Other: Voiding Method Bedside Commode Bedside Commode # Voids 1 1 2 - Labs CBC & Chem 7: 11/13/21 08:05 11/16/21 07:03 Labs: Abnormal Lab Results - Last 24 Hours (Table) 11/16/21 Range/Units 07:03 Carbon Dioxide 31 H (22-30) mmol/L
--- NOTE | 2021-11-16 16:46 | P.DS ---
Providers Date of admission: 11/14/21 16:11 Expected date of discharge: 11/16/21 Attending physician: Kamaljit Banda Consults: 11/12/21 01:29 Consult Physician Routine Consulting Provider: Swathi Sun Consult Reason/Comments: covid Do you want consulting provider notified?: Yes 11/14/21 11:34 Consult Physician Routine Consulting Provider: Arnold Galindo Consult Reason/Comments: rehab Do you want consulting provider notified?: Yes 11/14/21 12:57 Consult Physician Routine Consulting Provider: Tian Foote Consult Reason/Comments: prolapsed rectum Do you want consulting provider notified?: Yes Primary care physician: Juan Miguel Monique MD Hospital Course: Chief Complaint: Feeling unwell This is a 81-year-old patient, Dr. Juan Miguel Monique. Chronic stable medical conditions include atrial fibrillation, GERD, hypertension, mitral valve prolapse, chronic low back pain with any dizziness, scoliosis, right hand tremors, anxiety depression. Does use a walker to ambulate. Per the EMS/ER report patient was not able to ambulate without assistance which is not normal. Decrease eating and drinking at least the last 23 days. Patient also has a sore throat low-grade fever for at least 2 days. Cough. No sputum. Pulse ox initially noted was 89%. Tired rundown. Admitted with COVID 19 pneumonitis and mild hypoxic failure. November 13: Feeling better. Eating about 25-50%. Does feel tired. And weak. Daughter was called and she has not comfortable taking the patient home. PTOT been consulted. Discharged postponed until further evaluation by PT OT. November 14: Eating better. Tired. Seen by PT OT. Recommended [facility]. Social work consulted. Breathing stable. November 15: Oral intake fair. Patient's today's wondering if she can go home. We will await PTOT recommendation from tomorrow. November 16: Patient was keen to go home. She did ambulate with the nurse was able to get to the bathroom by her own. Daughter was called. biofuels production manager was involved. Nurse was involved. Final plan was for patient to be discharged home. Breathing well. Oral intake good. Patient also has a rectal prolapse. Will follow up with Dr. Foote for the same. Discussion and discharge planning more than 35 minutes Consultation: Dr. Foote from general surgery Past medical history to include: Atrial fibrillation, GERD, hypertension, mitral valve prolapse, colitis, lower back herniated disc, scoliosis, right hand tremor, pain clinic procedures, anxiety depression Social history: Patient lives with her daughter. Does use a walker. Patient smoked for 20 years stopped in 1985. No alcohol. Family history: Diabetes, alcohol Physical examination: VITAL SIGNS: 98, 81, 16, 129/85, 97% room air GENERAL: , laying in bed, awake, neck tilted to left. EYES: Pupils equal. Conjunctiva normal. HEENT: External appearance of nose and ears normal, oral cavity dry mucous membranes. NECK: JVD not raised; masses not palpable. HEART: First and second heart sounds are normal; no edema. LUNGS: Respiratory rate normal, decreased breath sounds, ABDOMEN: Soft, nontender, liver spleen not palpable, no masses palpable. Rec margo prolapse. Reducible. PSYCH: Alert and oriented x3; mood and affect normal. MUSCULOSKELETAL:No Clubbing/cyanosis;muscles-grossly intact. Neck tilted to left NEUROLOGICAL: Cranial nerves grossly intact; no facial asymmetry, power and sensation grossly intact. INVESTIGATIONS, reviewed in the clinical context: November 16: Potassium 3.5 crit 0.56 November 13: White count 5.9 hemoglobin 11.7 platelets 112 d-dimer 0.63 potassium 3.5 BUN 18 creatinine 0.48 White count 5.3 hemoglobin 11.5 platelets 113 sodium 135 potassium 3.2. 23 creatinine 0.61 albumin 3.4 Coronavirus [PCR]: Not detected EKG tracing personally reviewed by me-atrial flutter/fibrillation. Nonspecific ST segment changes. Rate 95 Chest x-ray film personally reviewed by me-possible infiltrate. Some cardiomegaly. Assessment and plan: -Acute COVID 19 pneumonitis. Vitamin C, vitamin D, zinc. On xarelto -Acute hypoxic respiratory failure will pulse ox 89% at home and 90% on room air upon presentation.: Better Dexamethasone 6 mg daily. Supplement oxygen to keep pulse ox above 92%. Pulse ox 97% on room air -Persistent atrial flutter fibrillation, controlled Continue xarelto. Lopressor 50 mg 3 times a day -GERD Pepcid 20 mg twice a day -Chronic gait dysfunction, uses a walker Activity as tolerated -Anxiety/depression Zoloft 50 mg a day -Chronic muscle spasms Baclofen 10 mg every 6 -Acute medical debility. PT OT: Recommend [facility]. Patient doing better. Home with home care. Disposition: Home with home health care Plan - Discharge Summary Discharge Rx Participant: No New Discharge Prescriptions: New Zinc Sulfate [Orazinc] 220 mg PO DAILY #30 cap Ascorbic Acid [Vitamin C] 500 mg PO BID #60 tab Cholecalciferol [Vitamin D3 (125 Mcg = 5000 Iu)] 125 mcg PO DAILY #30 tablet Continue Aspirin 81 mg PO HS Sertraline [Zoloft] 50 mg PO DAILY Butalb/Acetaminophen/Caffeine [Fioricet 50-325-40] 1 - 2 tab PO QID PRN MDD 6 tabs PRN Reason: Migraine Headache Baclofen [Lioresal] 10 mg PO Q6H Carbidopa-Levodopa 25-100 mg [Sinemet 25-100 mg] 1 tab PO DIRECTED Potassium Chloride ER [K-Dur 10] 10 meq PO DAILY 5 Days #5 tab.er.prt Rivaroxaban [Xarelto] 15 mg PO DAILY tab Furosemide [Lasix] 20 mg PO DAILY Metoprolol Tartrate [Lopressor] 50 mg PO BID-W/MEALS Discharge Medication List Aspirin 81 mg PO HS 10/07/14 [History] Baclofen [Lioresal] 10 mg PO Q6H 10/07/14 [History] Butalb/Acetaminophen/Caffeine [Fioricet 50-325-40] 1 - 2 tab PO QID PRN MDD 6 tabs 10/07/14 [History] Sertraline [Zoloft] 50 mg PO DAILY 10/07/14 [History] Carbidopa-Levodopa 25-100 mg [Sinemet 25-100 mg] 1 tab PO DIRECTED 07/22/20 [History] Potassium Chloride ER [K-Dur 10] 10 meq PO DAILY 5 Days #5 tab.er.prt 07/25/20 [Rx] Rivaroxaban [Xarelto] 15 mg PO DAILY tab 07/25/20 [Rx] Furosemide [Lasix] 20 mg PO DAILY 11/12/21 [History] Metoprolol Tartrate [Lopressor] 50 mg PO BID-W/MEALS 11/12/21 [History] Ascorbic Acid [Vitamin C] 500 mg PO BID #60 tab 11/13/21 [Rx] Cholecalciferol [Vitamin D3 (125 Mcg = 5000 Iu)] 125 mcg PO DAILY #30 tablet 11/13/21 [Rx] Zinc Sulfate [Orazinc] 220 mg PO DAILY #30 cap 11/13/21 [Rx] Follow up Appointment(s)/Referral(s): Juan Miguel Monique MD [Primary Care Provider] - 1-2 days [facility], [NON-STAFF] - 1-2 Days Patient Instructions/Handouts: Coronavirus Disease 2019 (COVID-19) Discharge Disposition: HOME SELF-CARE
== END 2021-11-16 16:11 | disposition home or self-care (01) | DRG 177 ==
LOC: EC 23:43 → 6NMEDSUR 11-12 01:28 → 3NCARDOBS 11-12 06:10 → 6NMEDSUR 11-13 15:05 → OBSVTOIN 11-14 16:11
PROVIDERS: ADMIT Hospitalist; ATTEND Hospitalist
DX: U07.1 COVID-19 (principal); J12.82 Pneumonia due to coronavirus disease 2019; J96.01 Acute respiratory failure with hypoxia; I48.92 Unspecified atrial flutter; I48.19 Other persistent atrial fibrillation; D69.6 Thrombocytopenia, unspecified; E86.0 Dehydration; M54.50 Low back pain, unspecified; M41.82 Other forms of scoliosis, cervical region; M41.84 Other forms of scoliosis, thoracic region; F41.8 Other specified anxiety disorders; G89.29 Other chronic pain; I10 Essential (primary) hypertension; I34.1 Nonrheumatic mitral (valve) prolapse; K21.9 Gastro-esophageal reflux disease without esophagitis; K62.3 Rectal prolapse; K64.9 Unspecified hemorrhoids; M41.9 Scoliosis, unspecified; Z79.01 Long term (current) use of anticoagulants; Z79.82 Long term (current) use of aspirin; Z79.899 Other long term (current) drug therapy; Z83.3 Family history of diabetes mellitus; Z87.891 Personal history of nicotine dependence; Z90.49 Acquired absence of other specified parts of digestive tract; Z87.19 Personal history of other diseases of the digestive system; Z98.42 Cataract extraction status, left eye; Z98.41 Cataract extraction status, right eye
CPT/HCPCS: 36415; 71045; 80048; 80053; 83605; 83615; 83735; 84100; 84145; 85025; 85379; 85610; 85730; 86140; 87635; 93005; 94760; 96361; 96374; 99285